=== PATIENT | male | born 1955 | race Caucasian/White ===

== ENCOUNTER 2021-06-25 17:24 | Inpatient (IN) | payer MEDICARE, OTHER ==
[~2021-06-25] VITALS: Ht 182.9 cm; Wt 78.6 kg
[~2021-06-25 17:24] MED LIST: DCS100C PO; HYDR-3454 PO
--- NOTE | 2021-06-25 17:39 | ED Chest Pain ---
General Chief Complaint: Cardiac/General Problems Stated Complaint: STEMI Nursing Triage Note: ARRIVED VIA EMS FROM [facility]. STEMI ALERT. 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 PT HAS HAD X2 NITRO AND 3324MG ASA. PT STATES HE HAS HAD THE PAIN ALL DAY. LEAFLET DISTRIBUTOR STATES CATH TEAM WAS ALERTED AT 1725 Source: patient Exam Limitations: no limitations History of Present Illness Date Seen by Provider: Jun 25, 2021 Time Seen by Provider: 17:27 Initial Comments Patient to the ER by EMS from home with chief complaint of never chest pain all day today worse on deep inspiration. He went to urgent care and they did an EKG which demonstrated anterior lead ST elevation and called EMS. EMS remarks that his EKG showed anterior lead ST elevation Khalid in as a STEMI and gave him 324 mg of aspirin. 2 doses of nitroglycerin later and the patient is comfortable although still having the pain made worse on deep inspiration only. He denies a history of heart disease but he does smoke cigarettes. He says he stopped using stimulants many years ago. He does not drink alcohol. He does have a history of low blood pressure does not take any blood pressure medications, cholesterol medications or significant family history. Allergies and Home Medications Allergies Coded Allergies: No Known Drug Allergies (Unverified , 09/06/13) Patient Home Medication List Home Medication List Reviewed: Yes Docusate Sodium (Colace) 100 Mg Capsule, 1 CAP PO BID Prescribed by: JAY SCHULZ on 09/12/13 0956 Hydrocodone Bit/Acetaminophen (Vicodin 5-300 Mg Tablet) 1 Each Tablet, 1 TAB PO Q4H PRN for PAIN Prescribed by: JAY SCHULZ on 09/12/13 0956 Review of Systems Review of Systems Constitutional: No chills, No diaphoresis EENTM: No Blurred Vision, No Double Vision Respiratory: Denies Cough, Denies Orthopnea Cardiovascular: See HPI, Chest Pain; Denies Edema Gastrointestinal: Denies Abdomen Distended, Denies Abdominal Pain Genitourinary: Denies Burning, Denies Discharge Musculoskeletal: No back pain, No joint pain All Other Systems Reviewed Negative Unless Noted: Yes Past Pjycyfz-Bpadaz-Xevbhh Hx Patient Social History Tobacco Use?: Yes Substance use?: No Additional substance use comme: PAST HX Alcohol Use?: No Immunizations Up To Date COVID19 Vaccine 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 oz. 69.100595tn; 21.00 BMI Method: General Appearance: Anxious, Thin HEENT: PERRL/EOMI, Moist Mucous Membranes Neck: Full Range of Motion, Normal Inspection Respiratory: Lungs Clear, Normal Breath Sounds, No Accessory Muscle Use, No Respiratory Distress Cardiovascular: Regular Rate, Rhythm, No Edema, Normal Peripheral Pulses Gastrointestinal: Normal Bowel Sounds, Non Tender, Soft Extremity: Normal Capillary Refill, Normal Inspection, No Pedal Edema Neurologic/Psychiatric: Alert, Oriented x3, No Motor/Sensory Deficits Skin: Normal Color, Warm/Dry Progress/Results/Core Measures Results/Orders Lab Results Laboratory Tests Test 06/25/21 17:32 Range/Units White Blood Count 12.5 H 4.3-11.0 10^3/uL Red Blood Count 5.08 4.30-5.52 10^6/uL Hemoglobin 15.3 13.3-17.7 g/dL Hematocrit 46 40-54 % Mean Corpuscular Volume 91 80-99 fL Mean Corpuscular Hemoglobin 30 25-34 pg Mean Corpuscular Hemoglobin Concent 33 32-36 g/dL Red Cell Distribution Width 13.0 10.0-14.5 % Platelet Count 188 130-400 10^3/uL Mean Platelet Volume 11.0 9.0-12.2 fL Immature Granulocyte % (Auto) 0 % Neutrophils (%) (Auto) 63 42-75 % Lymphocytes (%) (Auto) 22 12-44 % Monocytes (%) (Auto) 9 0-12 % Eosinophils (%) (Auto) 5 0-10 % Basophils (%) (Auto) 1 0-10 % Neutrophils # (Auto) 8.0 H 1.8-7.8 10^3/uL Lymphocytes # (Auto) 2.7 1.0-4.0 10^3/uL Monocytes # (Auto) 1.1 H 0.0-1.0 10^3/uL Eosinophils # (Auto) 0.6 H 0.0-0.3 10^3/uL Basophils # (Auto) 0.1 0.0-0.1 10^3/uL Immature Granulocyte # (Auto) 0.1 0.0-0.1 10^3/uL Prothrombin Time 13.3 12.2-14.7 SEC INR Comment 1.0 0.8-1.4 Activated Partial Thromboplast Time 31 24-35 SEC D-Dimer 1.01 H 0.00-0.49 UG/ML Sodium Level 134 L 135-145 MMOL/L Potassium Level 4.2 3.6-5.0 MMOL/L Chloride Level 103 98-107 MMOL/L Carbon Dioxide Level 20 L 21-32 MMOL/L Anion Gap 11 5-14 MMOL/L Blood Urea Nitrogen 20 H 7-18 MG/DL Creatinine 1.36 H 0.60-1.30 MG/DL Estimat Glomerular Filtration Rate 57 BUN/Creatinine Ratio 15 Glucose Level 109 H 70-105 MG/DL Calcium Level 8.8 8.5-10.1 MG/DL Corrected Calcium 9.1 8.5-10.1 MG/DL Magnesium Level 1.9 1.6-2.4 MG/DL Total Bilirubin 0.5 0.1-1.0 MG/DL Aspartate Amino Transf (AST/SGOT) 27 5-34 U/L Alanine Aminotransferase (ALT/SGPT) 26 0-55 U/L Alkaline Phosphatase 100 40-136 U/L Myoglobin 43.7 10.0-92.0 NG/ML Troponin I < 0.028 <0.028 NG/ML B-Type Natriuretic Peptide 27.4 <100.0 PG/ML Total Protein 7.3 6.4-8.2 GM/DL Albumin 3.6 3.2-4.5 GM/DL Lipase 14 8-78 U/L My Orders Orders - KYRASYMONE J Cbc With Automated Diff (06/25/21 17:31) Magnesium (06/25/21 17:31) Chest 1 View, Ap/Pa Only (06/25/21 17:31) Ekg Tracing (06/25/21 17:31) Comprehensive Metabolic Panel (06/25/21 17:31) Myoglobin Serum (06/25/21 17:31) Protime With Inr (06/25/21 17:31) Partial Thromboplastin Time (06/25/21 17:31) O2 (06/25/21 17:31) Monitor-Rhythm Ecg Trace Only (06/25/21 17:31) Lipid Panel (06/26/21 06:00) Ed Iv/Invasive Line Start (06/25/21 17:31) Lipase (06/25/21 17:31) Bnp [place] (06/25/21 17:31) Fibrin Degradation Products (06/25/21 17:31) Troponin I [place] (06/25/21 17:31) Nitroglycerin 0.4 Mg Btl 25's (Nitrostat (06/25/21 17:45) Heparin Injection (Heparin Injection) (06/25/21 17:45) Heparin (Bolus Per Protocol) (Heparin (B (06/25/21 17:45) Initiate Heparin Acs Protocol (06/25/21 17:39) Heparin (Bolus Per Protocol) (Heparin (B (06/25/21 17:41) Medications Given in ED Current Medications Medications Dose Ordered Sig/Jeniffer Route Start Time Stop Time Status Last Admin Dose Admin Heparin Sodium (Porcine) 3,550 unit ONCE ONCE IV 06/25/21 17:45 06/25/21 17:46 DC 06/25/21 17:44 3,550 UNIT Nitroglycerin 0.4 mg UD PRN SL 06/25/21 17:45 06/25/21 17:45 0.4 MG Vital Signs/I&O 06/25/21 06/25/21 17:26 17:35 Temp 36.3 B/P (MAP) Pulse Ox 95 O2 Delivery Nasal Cannula O2 Flow Rate 2.00 Progress Progress Note : Time: 17:36 Progress Note 1730: Spoke with Dr. Snow and he agrees to activate the Safety And Health Manager. 1735 Dr. Snow arrives in the ER to visit with the patient. Heparin 3550 units ordered as a bolus. Patient is already received aspirin and is not having significant pain at the moment. Paddles were put on a second IV was established. He is not needing supplemental oxygen at this time. O2 saturation 96% on room air. Initial ECG Impression Date: Jun 25, 2021 Initial ECG Impression Time: 17:29 Initial ECG Rate: 90 Initial ECG Rhythm: Normal Sinus Initial ECG Intervals: Normal Initial ECG Impression: Normal Comment Anterior lead ST elevation Diagnostic Imaging Diagonstic Imaging: Xray Plain Films/CT/US/NM/MRI: chest Comments [facility], [place] NAME: GLORY HUYNH [facility] REC#: [id number] PT STATUS: [facility] [place], [place] : 1955 PHYSICIAN: SYMONE RAE MD ADMIT DATE: 06/25/21/CATH Signed Date of Exam:06/25/21 CHEST 1 VIEW, AP/PA ONLY INDICATION: Chest pain. FINDINGS: The heart size is normal. There is no vascular congestion, failure pattern, effusion or pneumothorax. IMPRESSION: No acute appearing abnormality. Dictated by: Dictated on workstation # [id number] Dict: 06/25/21 1808 Trans: 06/25/21 1834 [facility] [id number] Interpreted by: ANGEL CHENG Electronically signed by: ANGEL CHENG 06/25/214 Reviewed: Reviewed by Me Departure Communication (Admissions) Time/Spoke to Admitting Phy: 17:30 Dr. Snow agrees to see the patient and take to Safety And Health Manager. Impression Primary Impression: STEMI (ST elevation myocardial infarction) Qualified Codes: I21.02 - ST elevation (STEMI) myocardial infarction involving left anterior descending coronary artery Disposition: ADMITTED INPATIENT Condition: Stable Admissions Decision to Admit Reason: Admit from ER (General) Decision to Admit/Date: Jun 25, 2021 Time/Decision to Admit Time: 17:30 Departure-Patient Inst. Referrals: NO,LOCAL PHYSICIAN (PCP/Family) Primary Care Physician SYMONE RAE Jun 25, 2021 17:38
[2021-06-25] MEDS ORDERED: HEParin 1000 UNIT/ML (10ML VIAL) FOR BOLUS ONE ×2 (17:41→18:12)
[2021-06-25 17:43] LABS: BASOPHILS # (AUTO) 0.1 10^3/uL (0.0-0.1); BASOPHILS % (AUTO) 1 % (0-10); EOSINOPHILS # (AUTO) 0.6 10^3/uL (0.0-0.3); EOSINOPHILS % (AUTO) 5 % (0-10); HEMATOCRIT 46 % (40-54); HEMOGLOBIN 15.3 g/dL (13.3-17.7); LYMPHOCYTES # (AUTO) 2.7 10^3/uL (1.0-4.0); LYMPHOCYTES % (AUTO) 22 % (12-44); MEAN CORPUSCULAR HEMOGLOBIN 30 pg (25-34); MEAN CORPUSCULAR HGB CONC 33 g/dL (32-36); MEAN CORPUSCULAR VOLUME 91 fL (80-99); MONOCYTES # (AUTO) 1.1 10^3/uL (0.0-1.0); MONOCYTES % (AUTO) 9 % (0-12); NEUTROPHILS % (AUTO) 63 % (42-75); PLATELET COUNT 188 10^3/uL (130-400); WHITE BLOOD COUNT 12.5 10^3/uL (4.3-11.0)
[2021-06-25] MEDS ORDERED: HEParin 1000 UNIT/ML (10ML VIAL) FOR BOLUS IV ONE (17:45)
[2021-06-25] MEDS ORDERED: NITROGLYCERIN 0.4 MG SL TABS BTL 25'S SL PRN (17:45)
[2021-06-25 17:49] LABS: ALBUMIN 3.6 GM/DL (3.2-4.5)
[2021-06-25 17:50] LABS: POTASSIUM 4.2 MMOL/L (3.6-5.0)
[2021-06-25] MEDS ORDERED: fentaNYL INJ 100 MCG/2 ML AMP ONE (17:50)
[2021-06-25 17:51] LABS: CALCIUM 8.8 MG/DL (8.5-10.1)
[2021-06-25] MEDS ORDERED: NS IV 1000 ML 1,000 ML ONE ×2 (17:51→21:36)
[2021-06-25] MEDS ORDERED: MIDAZOLAM 5 MG/5 ML (VERSED) VIAL ONE (17:51)
[2021-06-25] MEDS ORDERED: LIDOCAINE 2% 20 ML (XYLOCAINE) VIAL ONE (17:51)
--- NOTE | 2021-06-25 17:51 | Cardiology History & Physical ---
HPI-Cardiology Cardiology Consultation Date of Consultation 06/25/21 Date of Admission Time Seen by Provider: 17:48 Indication: Chest pain HPI 66 years old gentleman with history of back surgeries over 20 years ago. No other history, active smoker, started to have chest pain this morning associated with shortness of breath, tightness in the retrosternal area. Went to the urgent care and he was noted to have ST elevation in V2 and V3. Patient was referred to the emergency room, responded to nitroglycerin, feeling better but still having some chest pain with deep inspiration. No similar episode in the past. No palpitation. No syncope. PMH-Cardiology Other PMHx Multiple back surgeries last surgery was over 20 years ago Social History Patient Social History Marrital Status: Employed/Student: employed Smoking: Current every day smoker Have you traveled recently?: No Alcohol Use?: No Family Hx Other Brother has history of heart attack and coronary artery disease ROS-Cardiology Review of Systems General: No Chills, No Night Sweats, No Fatigue, No Malaise, No Appetite HEENT: No Head Aches, No Visual Changes, No Eye Pain, No Ear Pain, No Dysphasia, No Sinus Congestion, No Post Nasal Drip, No Sore Throat Pulmonary: Dyspnea; No Cough, No Pleuritic Chest Pain Cardiovascular: Chest Pain; No: Palpitations, Orthopnea, Paroxysmal Noc. Dyspnea, Edema, Lt Headedness Gastrointestinal: No: Nausea, Vomiting, Abdominal Pain, Diarrhea, Constipation, Melena, Hematochezia Genitourinary: No Dysuria, No Frequency, No Incontinence, No Hematuria, No Retention Musculoskeletal: No: neck pain, shoulder pain, arm pain, back pain, hand pain, leg pain, foot pain Neurological: No: Weakness, Numbness, Incoordination, Change in speech, Confusion, Seizures Home Medications & Allergies Allergies: Coded Allergies: No Known Drug Allergies (Unverified , 09/06/13) Home Medication List Reviewed: Yes Does not take any medication at home Exam-Cardiology Vital Signs Vital Signs Date Time Temp Pulse Resp B/P (MAP) Pulse Ox O2 Delivery O2 Flow Rate FiO2 06/25/21 17:35 95 Nasal Cannula 2.00 06/25/21 17:26 36.3 Exam General Appearance: Alert, Oriented X3, Cooperative, No Acute Distress HEENT: Atraumatic, PERRLA Respiratory: Clear to Auscultation, Normal Air Movement Cardiovascular: Regular Rate, Normal S1, Normal S2, No Murmurs Abdominal: Normal Bowel Sounds, Soft, No Tenderness, No Hepatosplenomegaly, No Masses Extremities: No Clubbing, No Cyanosis, No Edema, Normal Pulses, No Tenderness/Swelling Skin: No Rashes, No Breakdown, No Significant Lesion Neuro: Normal Gait, Normal Speech, Strength at 5/5 X4 Ext, Normal Tone, Sensation Intact Psych/Mental Status: Mental Status NL, Mood NL Results Labs Labs Laboratory Tests 06/25/21 17:32: White Blood Count 12.5H, Red Blood Count 5.08, Hemoglobin 15.3, Hematocrit 46, Mean Corpuscular Volume 91, Mean Corpuscular Hemoglobin 30, Mean Corpuscular Hemoglobin Concent 33, Red Cell Distribution Width 13.0, Platelet Count 188, Mean Platelet Volume 11.0, Immature Granulocyte % (Auto) 0, Neutrophils (%) (Auto) 63, Lymphocytes (%) (Auto) 22, Monocytes (%) (Auto) 9, Eosinophils (%) (Auto) 5, Basophils (%) (Auto) 1, Neutrophils # (Auto) 8.0H, Lymphocytes # (Auto) 2.7, Monocytes # (Auto) 1.1H, Eosinophils # (Auto) 0.6H, Basophils # (Auto) 0.1, Immature Granulocyte # (Auto) 0.1 A/P-Cardiology Admission Diagnosis Acute ST elevation myocardial infarction Coronary artery disease Tobaccoism Family history of atherosclerosis Admission Status: Inpatient Order (span 2 midnights) Reason for Inpatient Admission: STEMI Assessment/Plan Acute ST elevation myocardial infarction in the anterior wall, EKG showed slight improvement compared to the initial EKG from the urgent care. Having ST elevation in V2 and V3. Still having mild active chest pain, planning to proceed with emergency cardiac catheterization Coronary artery disease, I am proceeding with cardiac catheterization Tobaccoism, educated on smoking cessation Probable hyperlipidemia, I will evaluate lipid profile Strong family history of heart disease History of multiple back surgeries last surgery was done in 1999 Clinical Quality Measures AMI/AHF: ASA po Prior to arrival: Yes LEILA CR MD Jun 25, 2021 17:51
[2021-06-25 17:52] LABS: PROTHROMBIN TIME PATIENT 13.3 SEC (12.2-14.7); TOTAL PROTEIN 7.3 GM/DL (6.4-8.2)
[2021-06-25] MEDS ORDERED: HEParin (CATH LAB) 2,000 ML IV ONE (17:52)
[2021-06-25 17:54] LABS: BILIRUBIN,TOTAL 0.5 MG/DL (0.1-1.0)
[2021-06-25 17:56] LABS: CREATININE SERUM 1.36 MG/DL (0.60-1.30)
[2021-06-25 17:58] LABS: MAGNESIUM 1.9 MG/DL (1.6-2.4)
[2021-06-25 18:02] VITALS: BP 131/78
--- NOTE | 2021-06-25 18:10 | Diagnostic Imaging Report ---
INDICATION: Chest pain. FINDINGS: The heart size is normal. There is no vascular congestion, failure pattern, effusion or pneumothorax. IMPRESSION: No acute appearing abnormality. Dictated by: Dictated on workstation # [id number]
[2021-06-25] MEDS ORDERED: TICAGRELOR 90 MG TABLET (BRILINTA) PO ONE (18:42)
[2021-06-25] MEDS ORDERED: PATIENT MAY USE OWN MEDS, ALL PO SCH (18:45)
--- NOTE | 2021-06-25 18:55 | Cardiac Cath Report ---
Cardiac Cath Report Physician (s)/Global Climate Change Researcher (s) Physician LEILA CR MD Pre-Procedure Diagnosis Pre-Procedure Diagnosis: Acute myocardial infarction Post-Procedure Note Procedure Start Date: Jun 25, 2021 Name of Procedure: Left heart catheterization Left ventriculogram Emergency stenting of the ostial LAD Stenting of the mid right coronary artery Findings/Procedure Note PROCEDURE NOTE: 66 years old gentleman with history of tobaccoism and family history of heart disease, admitted with acute ST elevation myocardial infarction in the anterior wall. Emergency cardiac catheterization was advised. After explaining the procedure to the patient, all pros and cons were explained, all questions were answered. The patient signed the consent and then he was placed on the cardiac catheterization laboratory. Groin was prepped SL fashion local anesthesia was used. Sheath placed in the right femoral artery. Bill right and left catheter were used to access the coronary system. Pigtail was used to access the left ventricular cavity. Left ventriculogram was done at the end of the procedure Bill left 3.5 guide was advanced to the left coronary system, patient had ostial severe LAD stenosis with DONELL II flow, wire was advanced and placed in the mid LAD then primary stenting using skypoint 3 x 18 expanded to 3.1 mm with excellent results. The door to establishment of flow was 45 minutes, door to placement of the wire was 49 minutes and door to stenting was 50 minutes. Bill right guide was advanced and BMW wire was advanced and parked distally, patient has severe stenosis in the mid right coronary artery, primary stenting using skypoint 3.5 x 15 mm deployed to 3.6 mm with excellent results. The circumflex lesion was staged for a later point due to the underlying renal insufficiency and the large amount of contrast used At the end of the procedure the sheath was removed. Closure device was used FINDINGS: Hemodynamics LV 149/9, end-diastolic pressure of 9 Aorta 161/77 mean of 107 ANATOMY: Left Main has no obstructive disease Left Anterior Descending has severe ostial stenosis with DONELL II flow successful deployment of argenis point stent 3 x 18 mm expanded to 3.1 mm with excellent results and reestablishment of DONELL-3 flow, the artery is tortuous in the mi dportion Left Circumflex is moderate in size, has moderate to severe stenosis at the midportion involving an obtuse marginal origin. This will be staged for intervention later Right Coronary Artery has 50% proximal stenosis and 90% stenosis at the midport ion successful primary stenting using argenis point 3.5 x 15 mm expanded to 3.6 mm with excellent results LV Gram was done showing normal left ventricular size with subtle hypokinesia in the anterior wall and inferior wall, ejection fraction 50% CONCLUSION: 1. Acute myocardial infarction with successful emergency stenting of the ostium of the LAD using skypoint stent 3 x 18 mm expanded to 3.1 with excellent results. 2. Severe stenosis in the mid right coronary artery that is a large dominant artery with successful deployment of skypoint stent 3.5 x 15 mm expanded to 3.6 mm with excellent results, the proximal right coronary artery has 50% stenosis which will be monitored 3. 70% stenosis in the mid circumflex artery involving the ostium of obtuse marginal branch that he will be staged for intervention at a later point 4. Normal left ventricular size with good contractility, subtle hypokinesia at the anterior wall and inferior wall with estimated ejection fraction 50% DISCUSSION AND RECOMMENDATION: Patient was started on aspirin and Brilinta, Lipitor and Protonix and will be monitored, he was educated on smoking cessation Anesthesia Type: Conscious Sedation Estimated blood loss (mL): 30 ml Contrast Amount: 119 ml Total Radiation Dose: 598 mGy Post-Procedure Diagnosis Post-operative diagnosis: Acute ST elevation myocardial infarction in the anterior wall Coronary artery disease Tobaccoism Family history of atherosclerosis LEILA CR MD Jun 25, 2021 18:55
--- NOTE | 2021-06-25 21:12 | Tele-ICU Consult ---
History of Present Illness History of Present Illness Date Seen by Provider: Jun 25, 2021 Time Seen by Provider: 21:05 Reason for Visit: Chest pain History of Present Illness 66 M with STEMI of ant wall, taken to CCL found to have severe occlusion of LAD and RCA, both stented, LCx 70%, not stented, to be addressed at later date On Brilanta, ASA, statin, metoprolol Allergies and Home Medications Allergies Coded Allergies: No Known Drug Allergies (Unverified , 09/06/13) Home Medications Docusate Sodium 100 Mg Capsule, 1 CAP PO BID Prescribed by: JAY SCHULZ on 09/12/13 0956 Hydrocodone Bit/Acetaminophen 1 Each Tablet, 1 TAB PO Q4H PRN for PAIN Prescribed by: JAY SCHULZ on 09/12/13 0956 Past Medical/Social/Family Hx Patient Social History Marrital Status: Employed/Student: employed Tobacco Use?: Yes Tobacco type used: Cigarettes Smoking Status: Current Everyday Smoker Smokeless Tobacco Frequency: Never a User E-Cig and/or Vaping Freq: Never a User Substance use?: No PAST HX Alcohol Use?: No PAST HX Pt stated abuse/neglect: No Immunizations Up To Date Influenza Vaccine Up-to-Date: No; Not Current First/Initial COVID19 Vaccinat: Mar 2020 Second COVID19 Vaccination Luis: Apr 2020 Current Status Advance Directives: No Communicates: Verbally Primary Language: Belizean Preferred Spoken Language: Belizean Implanted or Applied Medical D: Stents Review of Systems Constitutional: see HPI EENTM: see HPI Respiratory: see HPI Cardiovascular: see HPI Gastrointestinal: see HPI Genitourinary: see HPI Musculoskeletal: see HPI Skin: see HPI Psychiatric/Neurological: See HPI Focused Exam Height, Weight, BMI Height: 6'0.00" Weight: 153lbs. oz. 69.026040li; 23.55 BMI Method: Exam Exam Patient acknowledged, consented, and participated in this virtual visit which was conducted using real time audio/video Vital Signs Date Time Temp Pulse Resp B/P (MAP) Pulse Ox O2 Delivery O2 Flow Rate FiO2 06/25/21 19:18 74 06/25/21 18:02 77 16 131/78 98 Nasal Cannula 2.00 06/25/21 17:35 95 Nasal Cannula 2.00 06/25/21 17:26 36.3 Height & Weight Height: 6'0.00" Weight: 153lbs. oz. 69.816823uk; 23.55 BMI Method: General Appearance: Anxious, Thin HEENT: PERRL/EOMI, Moist Mucous Membranes Neck: Full Range of Motion, Normal Inspection Respiratory: Lungs Clear, Normal Breath Sounds, No Accessory Muscle Use, No Respiratory Distress Cardiovascular: Regular Rate, Rhythm, No Edema, Normal Peripheral Pulses Extremity: Normal Capillary Refill, Normal Inspection, No Pedal Edema Neurologic/Psychiatric: Alert, Oriented x3, No Motor/Sensory Deficits Skin: Normal Color, Warm/Dry Results Lab Laboratory Tests 06/25/21 17:32 Assessment/Plan Assessment/Plan CAD, STEMI, s/p stenting, will continue meds, cardiology to follow Critical Care: Critically Ill Patient RAMBO BOLIVAR MD Jun 25, 2021 21:12
[2021-06-25] MEDS: NS IV 1000 ML 1,000 ML IV SCH (21:46)
[2021-06-25] MEDS: TICAGRELOR 90 MG TABLET (BRILINTA) PO SCH (23:29)
[2021-06-26 04:52] LABS: BASOPHILS % (AUTO) 0 % (0-10); EOSINOPHILS # (AUTO) 0.3 10^3/uL (0.0-0.3); EOSINOPHILS % (AUTO) 3 % (0-10); HEMATOCRIT 44 % (40-54); LYMPHOCYTES % (AUTO) 18 % (12-44); MEAN CORPUSCULAR HEMOGLOBIN 30 pg (25-34); MEAN CORPUSCULAR HGB CONC 34 g/dL (32-36); MEAN CORPUSCULAR VOLUME 89 fL (80-99); MEAN PLATELET VOLUME 11.1 fL (9.0-12.2); MONOCYTES % (AUTO) 9 % (0-12); NEUTROPHILS # (AUTO) 7.5 10^3/uL (1.8-7.8); NEUTROPHILS % (AUTO) 69 % (42-75); PLATELET COUNT 163 10^3/uL (130-400); WHITE BLOOD COUNT 10.9 10^3/uL (4.3-11.0)
[2021-06-26 05:06] LABS: POTASSIUM 4.1 MMOL/L (3.6-5.0)
[2021-06-26 05:07] LABS: ALBUMIN 3.2 GM/DL (3.2-4.5); CALCIUM 8.4 MG/DL (8.5-10.1)
[2021-06-26 05:09] LABS: TOTAL PROTEIN 6.6 GM/DL (6.4-8.2)
[2021-06-26] MEDS: NS IV 1000 ML 1,000 ML IV SCH (05:09)
[2021-06-26 05:11] LABS: BILIRUBIN,TOTAL 1.3 MG/DL (0.1-1.0)
[2021-06-26 05:12] LABS: PHOSPHORUS 2.7 MG/DL (2.3-4.7)
[2021-06-26 05:13] LABS: CREATININE SERUM 1.09 MG/DL (0.60-1.30)
[2021-06-26 05:16] LABS: MAGNESIUM 1.6 MG/DL (1.6-2.4)
[2021-06-26] MEDS ORDERED: MAGNESIUM 1 GM/100 ML IVPB 100 ML IV SCH (06:00)
[2021-06-26] MEDS ORDERED: POTASSIUM CL 10MEQ/50ML IVPB 50 ML IV SCH (06:00)
[2021-06-26] MEDS ORDERED: KCL 20 MEQ TAB (K-DUR) PO SCH (06:00)
[2021-06-26] MEDS: MAGNESIUM 1 GM/100 ML IVPB 100 ML IV SCH ×2 (06:01→07:18)
[2021-06-26] MEDS ORDERED: PANTOPRAZOLE 40 MG (PROTONIX) TAB PO SCH (07:00)
[2021-06-26] MEDS: TICAGRELOR 90 MG TABLET (BRILINTA) PO SCH (08:28)
[2021-06-26] MEDS ORDERED: ASPIRIN E.C. 81 MG (ECOTRIN) TAB PO SCH (09:00)
[2021-06-26] MEDS ORDERED: PANT40TA52 PO (09:04)
[2021-06-26] MEDS ORDERED: ATOR80TA76 PO (09:04)
[2021-06-26] MEDS ORDERED: ASPI-1238 PO (09:04)
[2021-06-26] MEDS ORDERED: TICA90TA PO (09:04)
--- NOTE | 2021-06-26 09:04 | Discharge Inst-Post CATH ---
Discharge Inst-CATH/EP Problems Reviewed?: Yes Post Cardiac Cath/EP D/C Inst Follow Up/Plan Appointment with Dr. Snow's office in 2 weeks <b>CARDIAC CATH/EP PROCEDURE DISCHARGE INSTRUCTIONS</b> ACTIVITY * Go Home directly and rest. * Limit activity of the leg (or wrist if it was used) for 7 days including aerobics, swimming, jogging, bicycling, etc. * Restrict stair-climbing for 7 days if possible, if not, climb up with your non-cath leg, then bring together on the same step. * Avoid lifting, pushing, pulling or excessive movement of the affected extremity for 7 days. * Customary sexual activity may be resumed after 2 days-use caution not to use a position that strains or causes pain to the affected extremity. * No driving for 24 hours. * NO SMOKING. * Avoid straining for bowel movements for 7 days. * Gentle walking on level ground is allowed. * Returning to work will depend on the type of procedure and the results. Your doctor will discuss this with you. CALL YOUR DOCTOR FOR ANY OF THE FOLLOWING: *If bleeding from the puncture site occurs- Apply gentle pressure to site with clean cloth and call your doctor or EMS. * If a knot or lump forms under the skin, increases in size, or causes pain. * If bruising appears to be worsening or moving further down your leg instead of disappearing. * Temperature above 101 F. CARE OF YOUR GROIN INCISION; * Bruising or purple discoloration of the skin near the puncture site is common. * You may shower only, no bathtub bathing for 5 days. Be careful to avoid slipping as your leg may feel stiff. * If a closure device was used on your femoral artery, please see the attached guide regarding care of the device and your leg. * Leave dressing on FOR 24 hours. CARE OF YOUR WRIST INCISION; * Bruising or purple discoloration of the skin near the puncture site is common. * You may shower. * DO NOT submerge wrist. * Leave dressing on FOR 24 hours. LEILA SNOW MD Jun 26, 2021 09:04
--- NOTE | 2021-06-26 09:43 | Tele-ICU Progress Note ---
Subjective Date Seen by a Provider: Jun 26, 2021 Time Seen by a Provider: 08:22 Subjective/Events-last exam (Tele-ICU Physician , Progress Note ) Available chart/ vitals / labs / Images reviewed Video assessment done using teleICU camera, rest of exam as per RN Discussed with RN , EXAM PER RN Events overnight : Afebrile FiO2 - ra I/O = Drips: Pressors: , hemodynamically stable Consultants: Hospital course: (06/25) 66yr old male admitted with a anterior wall STEMI s/p PTCA with stent to the ostium of the LAD and RCA A/P STEMI 06/25 -s/p PTCA with stent to the ostium of the LAD and RCA -LCx 70%, not stented, to be addressed at later date -On Brilanta, ASA, statin, metoprolol hyponatremia - mild , stable Lines : (Central Line Necessity Reviewed) Soriano: OG: Nutrition: po Analgesia: Anxiety/ delirium VTE Prophylaxis: Stress Ulcer Prophylaxis: ppi Plans in collaboration with bedside consultants and IM MDs. Discussed with RN to reach out if any questions or concerns A total of 5 minutes of critical care time was devoted to this patient today, required to treat and/or prevent further deterioration of critical care condition ( as above) Sepsis Event Evaluation Height, Weight, BMI Height: 6'0.00" Weight: 153lbs. oz. 69.258446pr; 23.55 BMI Method: Exam Exam Patient acknowledged, consented, and participated in this virtual visit which was conducted using real time audio/video Vital Signs Date Time Temp Pulse Resp B/P (MAP) Pulse Ox O2 Delivery O2 Flow Rate FiO2 06/26/21 09:00 70 20 102/72 98 Room Air 06/26/21 08:00 37.0 06/26/21 08:00 82 14 89/63 94 Room Air 06/26/21 07:45 Room Air 98 06/26/21 07:00 72 14 82/61 96 Room Air 06/26/21 07:00 75 06/26/21 06:00 67 17 87/71 97 Room Air 06/26/21 05:00 81 19 88/61 96 Room Air 06/26/21 04:00 37.2 06/26/21 04:00 86 18 103/87 97 Room Air 06/26/21 04:00 Room Air 06/26/21 03:00 74 19 92/73 97 Room Air 06/26/21 02:00 77 20 99/71 97 Room Air 06/26/21 01:00 76 20 109/87 98 Room Air 06/26/21 01:00 80 06/26/21 00:00 36.8 06/26/21 00:00 78 17 122/64 97 Room Air 06/26/21 00:00 Room Air 06/25/21 23:00 74 18 120/86 99 Room Air 06/25/21 22:57 Room Air 06/25/21 22:00 68 20 106/85 98 Nasal Cannula 2.00 06/25/21 21:00 67 17 103/84 100 Nasal Cannula 2.00 06/25/21 20:30 75 19 101/76 99 Nasal Cannula 2.00 06/25/21 20:00 Nasal Cannula 2.00 06/25/21 20:00 69 20 110/83 100 Nasal Cannula 2.00 06/25/21 19:45 73 16 110/76 100 Nasal Cannula 2.00 06/25/21 19:30 Nasal Cannula 2.00 06/25/21 19:18 74 06/25/21 19:15 36.3 06/25/21 19:15 71 20 118/87 97 Nasal Cannula 2.00 06/25/21 19:12 112/84 06/25/21 18:02 77 16 131/78 98 Nasal Cannula 2.00 06/25/21 17:35 95 Nasal Cannula 2.00 06/25/21 17:26 36.3 I & O 06/26/21 07:00 Intake Total 50 ml Output Total 1100 ml Balance -1050 ml Height & Weight Height: 6'0.00" Weight: 153lbs. oz. 69.282104yy; 23.55 BMI Method: General Appearance: Anxious, Thin HEENT: PERRL/EOMI, Moist Mucous Membranes Neck: Full Range of Motion, Normal Inspection Respiratory: Lungs Clear, Normal Breath Sounds, No Accessory Muscle Use, No Respiratory Distress Cardiovascular: Regular Rate, Rhythm, No Edema, Normal Peripheral Pulses Capillary Refill: Less Than 3 Seconds Extremity: Normal Capillary Refill, Normal Inspection, No Pedal Edema Neurologic/Psychiatric: Alert, Oriented x3, No Motor/Sensory Deficits Skin: Normal Color, Warm/Dry Results Lab Laboratory Tests 06/25/21 17:32 4/9/22 04:30 Assessment/Plan Assessment/Plan ` TAE YU MD Jun 26, 2021 09:43
--- NOTE | 2021-06-26 09:45 | Cardiology Discharge Summary ---
Discharge Summary Hospital Course Problems Reviewed?: Yes Hospital Course Date of Admission: Jun 25, 2021 at 18:47 Admission Diagnosis : Family Physician/Provider: No,Local Physician Date of Discharge: 06/26/21 Discharge Diagnosis: [Acute ST elevation myocardial infarction Coronary artery disease Hyperlipidemia Tobaccoism] Hospital Course: [Acute ST elevation myocardial infarction in the anterior wall, EKG showing dynamic ST elevation, initial urgent care EKG showing significant ST elevation NC in V2 and V3, repeat EKG in the emergency room showed improvement but still have some residual ST elevation in V3. EKG on June 26, 2021 showed resolution of the ST changes with persistent right bundle branch block. Troponin showed mild elevation. Coronary artery disease, emergency cardiac catheterization was done and results as follow: 1. Acute myocardial infarction with successful emergency stenting of the ostium of the LAD using skypoint stent 3 x 18 mm expanded to 3.1 with excellent results. 2. Severe stenosis in the mid right coronary artery that is a large dominant artery with successful deployment of skypoint stent 3.5 x 15 mm expanded to 3.6 mm with excellent results, the proximal right coronary artery has 50% stenosis which will be monitored 3. 70% stenosis in the mid circumflex artery involving the ostium of obtuse marginal branch that he will be staged for intervention at a later point 4. Normal left ventricular size with good contractility, subtle hypokinesia at the anterior wall and inferior wall with estimated ejection fraction 50% Hypotension, patient will not be able to tolerate beta-blockers, NAZ inhibitor and/or ARB. Hyperlipidemia, lipid profile showed total cholesterol 180, LDL 154, HDL 31, triglyceride 83, patient was started on Lipitor 80 mg daily. Continue to monitor Tobaccoism, educated on smoking cessation Strong family history of heart disease History of multiple back surgeries last surgery was done in 1999] Labs and Pending Lab Test: Laboratory Tests 06/25/21 17:32: White Blood Count 12.5H, Red Blood Count 5.08, Hemoglobin 15.3, Hematocrit 46, Mean Corpuscular Volume 91, Mean Corpuscular Hemoglobin 30, Mean Corpuscular Hemoglobin Concent 33, Red Cell Distribution Width 13.0, Platelet Count 188, Mean Platelet Volume 11.0, Immature Granulocyte % (Auto) 0, Neutrophils (%) (Auto) 63, Lymphocytes (%) (Auto) 22, Monocytes (%) (Auto) 9, Eosinophils (%) (Auto) 5, Basophils (%) (Auto) 1, Neutrophils # (Auto) 8.0H, Lymphocytes # (Auto) 2.7, Monocytes # (Auto) 1.1H, Eosinophils # (Auto) 0.6H, Basophils # (Auto) 0.1, Immature Granulocyte # (Auto) 0.1, Prothrombin Time 13.3, INR Comment 1.0, Activated Partial Thromboplast Time 31, D-Dimer 1.01H, Sodium Level 134L, Potassium Level 4.2, Chloride Level 103, Carbon Dioxide Level 20L, Anion Gap 11, Blood Urea Nitrogen 20H, Creatinine 1.36H, Estimat Glomerular Filtration Rate 57, BUN/Creatinine Ratio 15, Glucose Level 109H, Calcium Level 8.8, Corrected Calcium 9.1, Magnesium Level 1.9, Total Bilirubin 0.5, Aspartate Amino Transf (AST/SGOT) 27, Alanine Aminotransferase (ALT/SGPT) 26, Alkaline Phosphatase 100, Myoglobin 43.7, Troponin I < 0.028, B-Type Natriuretic Peptide 27.4, Total Protein 7.3, Albumin 3.6, Lipase 14 06/26/21 04:30: White Blood Count 10.9, Red Blood Count 4.93, Hemoglobin 15.0, Hematocrit 44, Mean Corpuscular Volume 89, Mean Corpuscular Hemoglobin 30, Mean Corpuscular Hemoglobin Concent 34, Red Cell Distribution Width 12.8, Platelet Count 163, Mean Platelet Volume 11.1, Immature Granulocyte % (Auto) 0, Neutrophils (%) (Aut o) 69, Lymphocytes (%) (Auto) 18, Monocytes (%) (Auto) 9, Eosinophils (%) (Auto) 3, Basophils (%) (Auto) 0, Neutrophils # (Auto) 7.5, Lymphocytes # (Auto) 2.0, Monocytes # (Auto) 1.0, Eosinophils # (Auto) 0.3, Basophils # (Auto) 0.0, Immature Granulocyte # (Auto) 0.0, Sodium Level 134L, Potassium Level 4.1, Chloride Level 106, Carbon Dioxide Level 16L, Anion Gap 12, Blood Urea Nitrogen 16, Creatinine 1.09, Estimat Glomerular Filtration Rate 74, BUN/Creatinine Ratio 15, Glucose Level 96, Calcium Level 8.4L, Corrected Calcium 9.0, Magnesium Level 1.6, Total Bilirubin 1.3H, Aspartate Amino Transf (AST/SGOT) 24, Alanine Aminotransferase (ALT/SGPT) 20, Alkaline Phosphatase 91, Troponin I 0.041H, Total Protein 6.6, Albumin 3.2, Phosphorus Level 2.7, Triglycerides Level 83, Cholesterol Level 180, LDL Cholesterol Direct 154H, VLDL Cholesterol 17, HDL Cholesterol 31L Home Meds Active Pantoprazole Sodium 40 Mg Tablet.dr 40 Mg PO DAILY@0700 Aspirin EC (Aspirin) 81 Mg Tablet.dr 81 Mg PO DAILY Atorvastatin Calcium 80 Mg Tablet 80 Mg PO HS Brilinta (Ticagrelor) 90 Mg Tablet 90 Mg PO BID Vicodin 5-300 Mg Tablet (Hydrocodone Bit/Acetaminophen) 1 Each Tablet 1 Tab PO Q4H PRN Colace (Docusate Sodium) 100 Mg Capsule 1 Cap PO BID Assessment/Pt DC Instructions Acute myocardial infarction Coronary artery disease Discharge Diet: Cardiac Diet Discharge Physical Examination Allergies: Coded Allergies: No Known Drug Allergies (Unverified , 09/06/13) General Appearance: No Apparent Distress, WD/WN HEENT: PERRL/EOMI, TMs Normal, Normal ENT Inspection, Pharynx Normal Respiratory: Chest Non Tender, Lungs Clear, Normal Breath Sounds, No Accessory Muscle Use, No Respiratory Distress Cardiovascular: Regular Rate, Rhythm, No Edema, No Gallop, No JVD, No Murmur, Normal Peripheral Pulses Gastrointestinal: Normal Bowel Sounds, No Organomegaly, No Pulsatile Mass, Non Tender, Soft Extremity: Normal Capillary Refill, Normal Inspection, Normal Range of Motion, Non Tender, No Calf Tenderness Skin: Normal Color, Warm/Dry Neurologic/Psychiatric: Alert, Oriented x3, No Motor/Sensory Deficits Clinical Quality Measures Admission Status Admission Status: Inpatient Order (span 2 midnights) Reason for Inpatient Admission: Acute ST elevation myocardial infarction AMI/AHF: Ejection Fraction: Normal LVSF ASA po Prior to arrival: Yes LEILA CR MD Jun 26, 2021 09:43
== END 2021-06-26 12:43 | disposition home or self-care (01) | DRG 247 ==
LOC: EDUNIT# 17:24 → ER 17:25 → CATH 17:48 → ICU 18:47
PROVIDERS: ADMIT Internal Medicine Cardiovascular Disease; ATTEND Internal Medicine Cardiovascular Disease
PROC: 027135Z Dilation of Coronary Artery, Two Arteries with Two Drug-eluting Intraluminal Devices, Percutaneous Approach (ICD-10-PCS; principal; 2021-06-25)
PROC: 4A023N7 Measurement of Cardiac Sampling and Pressure, Left Heart, Percutaneous Approach (ICD-10-PCS; 2021-06-25)
PROC: B2111ZZ Fluoroscopy of Multiple Coronary Arteries using Low Osmolar Contrast (ICD-10-PCS; 2021-06-25)
PROC: B2151ZZ Fluoroscopy of Left Heart using Low Osmolar Contrast (ICD-10-PCS; 2021-06-25)
DX: I21.09 ST elevation (STEMI) myocardial infarction involving other coronary artery of anterior wall (principal); E87.1 Hypo-osmolality and hyponatremia; F17.210 Nicotine dependence, cigarettes, uncomplicated; I25.10 Atherosclerotic heart disease of native coronary artery without angina pectoris; Z82.49 Family history of ischemic heart disease and other diseases of the circulatory system; E78.5 Hyperlipidemia, unspecified
CPT/HCPCS: 36415; 71045; 80053; 80061; 83690; 83735; 83874; 83880; 84100; 84484; 85025; 85027; 85379; 85610; 85730; 87081; 93041; 93306; 93458

== ENCOUNTER → 2021-06-28 | Outpatient (CLI) | payer MEDICARE ==
[~2021-06-28] MED LIST changes: +ASPI-1238 PO; +ATOR80TA76 PO; +CATHETER FLUSH 10 ML SYR IV PRN; +IOHEXOL 350 MG/ML 100 ML (OMNIPAQUE 350) VIAL IV ONE; +NS 100 ML (IVPB) BAG IV ONE; +PANT40TA52 PO; +TICA90TA PO
--- NOTE | 2021-06-28 17:06 | Diagnostic Imaging Report ---
INDICATION: Recent arterial access for cardiac catheterization. Now with leg pain. COMPARISON: 12/30/2011 TECHNIQUE: Routine postcontrast CTA of the abdomen, pelvis, and bilateral lower extremities was performed. Contrast was injected intravenously and timed for optimal opacification of the arterial structures. Multiplanar and 3-D reformats were also performed and reviewed. Auto Exposure Controls were utilized during the CT exam to meet ALARA standards for radiation dose reduction. FINDINGS: Included portions of the lung bases are clear. CTA ABDOMEN: There is extensive advanced calcified and noncalcified aortic atherosclerotic disease. Based on NASCET criteria, there is no focal significant stenosis of the aorta. There is no evidence of dissection or aneurysm. There is high-grade stenosis of the origin and proximal portions of the celiac artery. This however may be related to compression by the median arcuate ligament. Down stream branches of the celiac artery appear to be patent. Superior mesenteric artery shows mild eccentric noncalcified plaque along the superior margins of its proximal portion. This results in approximate narrowing of 30%. Downstream portions of the superior mesenteric artery appear to be widely patent. There are single renal arteries, bilaterally. There is no evidence of focal significant renal artery stenosis. Inferior mesenteric artery is patent. Small bowel loops are nondistended. There is scattered colonic diverticulosis, but no CT evidence of acute diverticulitis. Normal appendix is identified. Benign-appearing renal cysts are identified bilaterally. There is also nonobstructive left renal calculus. Otherwise, the kidneys, adrenal glands, spleen, pancreas, and liver have a normal CT appearance. There is no loculated fluid collection, free fluid or free air within the abdomen. No abnormal mesenteric or retroperitoneal adenopathy is seen. Osseous structures show no acute abnormalities. CTA PELVIS: There is moderate atherosclerotic disease of the aortic bifurcation as well as the bilateral common iliac arteries, right greater than left. No focal significant stenosis is identified. The urinary bladder is unopacified. No calculi are seen within the urinary bladder. There is no loculated fluid collection, free fluid or free air within the pelvis. No abnormal adenopathy is seen. Osseous structures show no acute abnormalities. CTA BILATERAL LOWER EXTREMITIES: There is moderate calcified and noncalcified atherosclerotic disease of the bilateral common femoral arteries. The bilateral superficial femoral arteries are occluded. There is reconstitution of the bilateral popliteal arteries, likely via collaterals from branches of the profunda femoral artery. There is normal opacification of the bilateral posterior tibial arteries. Left anterior tibial artery is diminutive in its appearance distally. It is likely occluded proximal to the level of the ankle. Large lucency is seen within the right calcaneus and may be on the basis of intraosseous lipoma. No acute osseous abnormality is seen. No suspicious bony lesion is identified. Special attention is paid to the external marker placed over the posterior proximal left thigh. Underlying soft tissue structures are unremarkable. No suspicious mass or fluid collection is seen. IMPRESSION: 1. Extensive advanced calcified and noncalcified aortic and arterial atherosclerosis, as described above. 2. 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 Again, this may be related to compression by the median arcuate ligament. 3. Mild narrowing of the proximal superior mesenteric artery. 4. Occlusion of the bilateral superficial femoral arteries with distal reconstitution of the popliteal artery, likely via collaterals from the bilateral profunda femoral arteries and its branches. 5. Benign-appearing bilateral renal cysts. 6. Nonobstructive left renal calculus. Dictated by: Dictated on workstation # [id number]
== END ==
LOC: RAD 16:00
PROVIDERS: ATTEND Internal Medicine Cardiovascular Disease
DX: I70.0 Atherosclerosis of aorta (principal); I77.4 Celiac artery compression syndrome; K55.1 Chronic vascular disorders of intestine; K57.30 Diverticulosis of large intestine without perforation or abscess without bleeding; N28.1 Cyst of kidney, acquired; N20.0 Calculus of kidney; I70.203 Unspecified atherosclerosis of native arteries of extremities, bilateral legs
CPT/HCPCS: 75635

== ENCOUNTER 2021-07-07 07:50 | Inpatient (IN) | payer MEDICARE ==
[~2021-07-07] VITALS: Ht 182.8 cm; Wt 72.3 kg
[~2021-07-07 07:50] MED LIST changes: -CATHETER FLUSH 10 ML SYR IV PRN; -IOHEXOL 350 MG/ML 100 ML (OMNIPAQUE 350) VIAL IV ONE; -NS 100 ML (IVPB) BAG IV ONE
[2021-07-07] MEDS ORDERED: NS IV 1000 ML 1,000 ML ONE ×2 (08:18→10:53)
[2021-07-07] MEDS ORDERED: HEParin (CATH LAB) 1,000 ML IV ONE (08:18)
[2021-07-07] MEDS ORDERED: LIDOCAINE 1% INJ 20 ML VIAL ONE (08:18)
[2021-07-07 08:33] LABS: HEMATOCRIT 46 % (40-54); HEMOGLOBIN 15.2 g/dL (13.3-17.7); MEAN CORPUSCULAR HEMOGLOBIN 30 pg (25-34); MEAN CORPUSCULAR HGB CONC 33 g/dL (32-36); MEAN CORPUSCULAR VOLUME 92 fL (80-99); MEAN PLATELET VOLUME 10.8 fL (9.0-12.2); PLATELET COUNT 248 10^3/uL (130-400); WHITE BLOOD COUNT 11.1 10^3/uL (4.3-11.0)
[2021-07-07 08:34] LABS: BILIRUBIN,URINE NEGATIVE (NEGATIVE); CLARITY,URINE CLEAR; COLOR,URINE YELLOW; GLUCOSE, URINE (UA) NEGATIVE (NEGATIVE); KETONES,URINE NEGATIVE (NEGATIVE); LEUKOCYTE ESTERASE ,URINE NEGATIVE (NEGATIVE); NITRITE,URINE NEGATIVE (NEGATIVE); PROTEIN,URINE 1+ (NEGATIVE)
[2021-07-07 08:36] VITALS: BP 98/80
--- NOTE | 2021-07-07 08:38 | Diagnostic Imaging Report ---
EXAMINATION: Chest 1 view HISTORY: Preoperative exam COMPARISON: 06/25/2021 FINDINGS: The lungs are clear without edema or pneumonia. No pleural effusion or pneumothorax. Heart size is normal. An 8 mm nodule left upper zone is unchanged and likely a calcified granuloma due to its conspicuity and small size. IMPRESSION: 1. Clear lungs. Dictated by: Dictated on workstation # [id number]
[2021-07-07 08:44] LABS: BACTERIA,URINE NEGATIVE /HPF; HYALINE CASTS, URINE RARE /LPF
[2021-07-07 08:48] LABS: INR 0.9 (0.8-1.4); PROTHROMBIN TIME PATIENT 12.8 SEC (12.2-14.7)
[2021-07-07] MEDS ORDERED: CLOP75TA28 PO (08:58)
[2021-07-07 09:11] LABS: ALBUMIN 3.8 GM/DL (3.2-4.5); BILIRUBIN,TOTAL 0.5 MG/DL (0.1-1.0); CALCIUM 9.4 MG/DL (8.5-10.1); CREATININE SERUM 1.55 MG/DL (0.60-1.30); POTASSIUM 4.3 MMOL/L (3.6-5.0); TOTAL PROTEIN 7.8 GM/DL (6.4-8.2)
[2021-07-07] MEDS ORDERED: fentaNYL INJ 100 MCG/2 ML AMP ONE (10:08)
[2021-07-07] MEDS ORDERED: MIDAZOLAM 5 MG/5 ML (VERSED) VIAL ONE (10:08)
--- NOTE | 2021-07-07 10:16 | Conscious Sedation/ASA ---
Conscious Sedation Pre-Proced Time 10:16 ASA Score 3 For ASA 3 and 4: Consider anesthesia and medical clearance. Also, for patients with a history of failed moderate sedation consider anesthesia. Airway Lungs Heart ASA score ASA 1: a normal healthy patient ASA 2: a patient with a mild systemic disease (mid diabetes, controlled hypertension, obesity x ASA 3: a patient with a severe systemic disease that limits activity (angina, COPD, prior Myocardial infarction) ASA 4: a patient with an incapacitating disease that is a constant threat to life (CHF, renal failure) ASA 5: a moribund patient not expected to survive 24 hrs. (ruptured aneurysm) ASA 6: a declared brain- patient whose organs are being harvested. For emergent operations, add the letter E after the classification Mallampati Classification Grade 3 Sedation Plan Analgesia, Amnesia, Plan communicated to team members, Discussed options with patient/fam, Discussed risks with patient/fam The patient is an appropriate candidate to undergo the planned procedure, sedation, and anesthesia. The patient immediately re-assessed prior to indication. LEILA CR MD Jul 07, 2021 10:16
[2021-07-07] MEDS ORDERED: HEParin 1000 UNIT/ML (10ML VIAL) FOR BOLUS ONE (10:45)
[2021-07-07] MEDS: NS IV 1000 ML 1,000 ML IV SCH ×3 (11:30→16:42)
[2021-07-07] MEDS ORDERED: NITRO DRIP 25000 MCG/D5W 250 ML IV ONE (11:49)
[2021-07-07] MEDS ORDERED: ASPIRIN 325 MG (5 GR) TABLET ONE (12:07)
[2021-07-07] MEDS ORDERED: CLOPIDOGREL 300 MG (PLAVIX) TABLET PO ONE (12:07)
[2021-07-07 12:15] VITALS: BP 118/91
[2021-07-07] MEDS ORDERED: PATIENT MAY USE OWN MEDS, ALL PO SCH (12:15)
--- NOTE | 2021-07-07 12:16 | Peripheral Report ---
Peripheral Report Physician (s)/Automotive Porter (s) Physician LEILA CR MD Pre-Procedure Diagnosis Pre-Procedure Diagnosis: Peripheral arterial disease, claudication Post-Procedure Note Procedure Start Date: Jul 07, 2021 Name of Procedure: Bilateral lower extremity runoff Third order Stenting of the left SFA Findings/Procedure Note PROCEDURE NOTE: 66-year-old gentleman with coronary artery disease status postacute myocardial infarction seen in the office having severe pain in his lower extremities, had CTA which showed occlusion of the SFA bilaterally he was scheduled for peripheral angiogram. After explaining the procedure to the patient, all pros and cons were explained, all questions were answered. The patient signed the consent and then he was placed on the cardiac catheterization laboratory. The patient was placed on the cardiac catheterization laboratory. Groin was prepped SL fashion local anesthesia was used. Sheath placed in the right femoral artery, runoff to the right leg was done then I advanced a rim catheter and did runoff of the left leg. Patient had total occlusion of the SFA bilaterally. Patient received total of 6000 units of heparin, I used a long sheath then a mini catheter and was able to cross with difficulty through the chronic total occlusion of the SFA. I used the mini catheter to assist with the crossing and I was alternating between command [address], I advanced the mini catheter to the popliteal artery and did direct injection and establish that the catheter is in the true lumen. Then I placed a command 18 wire and started with ballooning using Baldwin 4 x 200 then advanced Baldwin 6 x 200. I proceeded with deployment of 3 Supera stents starting proximally with 6 x 150 followed by 5.5 x 150 and another 5.5 x 150. The ostium of the SFA has ulcerated plaque, I decided to place absolute Pro 7 x 40 overlapping with other stents postdilated with Baldwin 6 x 150 balloon, angiogram showed excellent results with good flow. At the end of the procedure sheath was exchanged to a short 6 Maltese sheath then rim catheter was advanced that I evaluated the abdominal aorta at the bifurcation level then closure device was deployed FINDINGS: Right lower extremity: Total occlusion of the ostium of the right SFA reconstructed at the popliteal artery Left lower extremity: Total occlusion of the ostium of the left SFA reconstructed by collaterals at the popliteal level, complex intervention with d eployment of 4 stents. At the ostium absolute Pro 7 x 40 followed by Supera 6 x 150 then Supera 5.5 x 150 and another Supera 5.5 x 150 with excellent results and excellent flow down to the foot. CONCLUSIONS: 1. Total occlusion of the left SFA, complex intervention with deployment of 4 self-expanding stent extending from the ostium of the left SFA to the popliteal artery using absolute Pro 7 x 40 followed by Supera 6 x 150 then Supera 5.5 x 150 and another Supera 5.5 x 150. Excellent results with excellent flow 2. Total occlusion of the right SFA that will be staged for an intervention DISCUSSION AND RECOMMENDATIONS: Continue to maximize medical therapy Anesthesia Type: Conscious Sedation Estimated blood loss (mL): 35 ml Contrast Amount: 60 ml Total Radiation Dose: 213 mGy Post-Procedure Diagnosis Post-operative diagnosis: Coronary artery disease Peripheral arterial disease Claudication Hypertension LEILA CR MD Jul 07, 2021 12:16
[2021-07-07 12:45] VITALS: BP 112/85
[2021-07-07 13:00] VITALS: BP 112/88
[2021-07-07 16:01] VITALS: BP 116/90
[2021-07-07 20:00] VITALS: BP 94/73
[2021-07-08] VITALS: BP 100/73
[2021-07-08 04:00] VITALS: BP 101/77
[2021-07-08 06:14] LABS: HEMATOCRIT 41 % (40-54); HEMOGLOBIN 14.1 g/dL (13.3-17.7); MEAN CORPUSCULAR HEMOGLOBIN 31 pg (25-34); MEAN CORPUSCULAR HGB CONC 34 g/dL (32-36); MEAN CORPUSCULAR VOLUME 89 fL (80-99); PLATELET COUNT 216 10^3/uL (130-400); WHITE BLOOD COUNT 10.8 10^3/uL (4.3-11.0)
[2021-07-08 06:27] LABS: POTASSIUM 4.4 MMOL/L (3.6-5.0)
[2021-07-08 06:28] LABS: CALCIUM 8.7 MG/DL (8.5-10.1)
[2021-07-08 06:33] LABS: CREATININE SERUM 1.32 MG/DL (0.60-1.30)
[2021-07-08 08:15] VITALS: BP 76/58
[2021-07-08] MEDS: NS IV 1000 ML 1,000 ML IV SCH ×4 (08:47→22:51)
[2021-07-08] MEDS: PANTOPRAZOLE 40 MG (PROTONIX) TAB PO SCH (09:09)
[2021-07-08] MEDS: ASPIRIN E.C. 81 MG (ECOTRIN) TAB PO SCH (09:09)
[2021-07-08] MEDS: CLOPIDOGREL 75 MG (PLAVIX) TABLET PO SCH (09:09)
--- NOTE | 2021-07-08 09:54 | Cardiology History & Physical ---
HPI-Cardiology Cardiology Consultation Date of Consultation 07/08/21 Date of Admission Time Seen by Provider: 09:51 Indication: leg pain HPI 66-year-old gentleman with coronary artery disease, had emergency cardiac catheterization and stenting. Having severe pain in his lower extremities, most probably related to his back pain. I evaluated CT angiogram which showed total occlusion of his SFA bilaterally, he was admitted for peripheral angiogram. This morning still having pain in his leg, diminished pulse. No chest pain. PMH-Cardiology Other PMHx Multiple back surgeries last surgery was over 20 years ago Social History Patient Social History Marrital Status: Employed/Student: employed Smoking: Current every day smoker Family Hx Other Discussed below ROS-Cardiology Review of Systems General: No Chills, No Night Sweats, No Fatigue, No Malaise, No Appetite HEENT: No Head Aches, No Visual Changes, No Eye Pain, No Ear Pain, No Dysphasia, No Sinus Congestion, No Post Nasal Drip, No Sore Throat Pulmonary: No Dyspnea, No Cough, No Pleuritic Chest Pain Cardiovascular: No: Chest Pain, Palpitations, Orthopnea, Paroxysmal Noc. Dyspnea, Edema, Lt Headedness Gastrointestinal: No: Nausea, Vomiting, Abdominal Pain, Diarrhea, Constipation, Melena, Hematochezia Genitourinary: No Dysuria, No Frequency, No Incontinence, No Hematuria, No Retention Musculoskeletal: back pain, leg pain; No: neck pain, shoulder pain, arm pain, hand pain, foot pain Neurological: No: Weakness, Numbness, Incoordination, Change in speech, Confusion, Seizures Home Medications & Allergies Allergies: Coded Allergies: No Known Drug Allergies (Unverified , 09/06/13) Home Medication List Reviewed: Yes Exam-Cardiology Vital Signs Vital Signs Date Time Temp Pulse Resp B/P (MAP) Pulse Ox O2 Delivery O2 Flow Rate FiO2 07/08/21 08:15 75 76/58 (64) 94 Room Air 07/08/21 04:00 37.0 07/08/21 00:00 19 Exam General Appearance: Alert, Oriented X3, Cooperative, No Acute Distress HEENT: Atraumatic, PERRLA Respiratory: Clear to Auscultation, Normal Air Movement Cardiovascular: Regular Rate, Normal S1, Normal S2, No Murmurs Abdominal: Normal Bowel Sounds, Soft, No Tenderness, No Hepatosplenomegaly, No Masses Extremities: No Clubbing, No Cyanosis, No Edema, Normal Pulses, No Tenderness/Swelling Skin: No Rashes, No Breakdown, No Significant Lesion Neuro: Normal Gait, Normal Speech, Strength at 5/5 X4 Ext, Normal Tone, Sensation Intact Psych/Mental Status: Mental Status NL, Mood NL Results Labs Labs Laboratory Tests 07/08/21 06:05: White Blood Count 10.8, Red Blood Count 4.62, Hemoglobin 14.1, Hematocrit 41, Mean Corpuscular Volume 89, Mean Corpuscular Hemoglobin 31, Mean Corpuscular Hemoglobin Concent 34, Red Cell Distribution Width 12.6, Platelet Count 216, Mean Platelet Volume 11.0, Sodium Level 135, Potassium Level 4.4, Chloride Level 104, Carbon Dioxide Level 19L, Anion Gap 12, Blood Urea Nitrogen 19H, Creatinine 1.32H, Estimat Glomerular Filtration Rate 59, BUN/Creatinine Ratio 14, Glucose Level 86, Calcium Level 8.7 A/P-Cardiology Admission Diagnosis Critical limb ischemia Peripheral arterial disease Coronary artery disease Hypertension Admission Status: Inpatient Order (span 2 midnights) Reason for Inpatient Admission: PAD Assessment/Plan Severe leg pain, mainly in his thigh. CTA was abnormal. Peripheral angiogram was done showing total occlusion of the SFA bilaterally Complex intervention of the left lower extremity with deployment of 4 stents in the left SFA with excellent results. Due to his renal insufficiency I am continuing with IV fluid and planning to proceed with angiogram on the right leg tomorrow. Coronary artery disease, Emergency cardiac catheterization was carried out on June 25, 2021 after having an acute myocardial infarction successful emergency stenting of the ostium of the LAD using argenis point stent 3 x 18 expanded to 3.1 with severe stenosis in the mid right coronary artery is large dominant artery with deployment of argenis point stent 3.5 x 15 mm expanded to 3.6 mmHg. Patient has 70% stenosis in the mid circumflex artery involving the ostium of the obtuse marginal branch which will be staged for intervention at a later point, ejection fraction 50%. Coronary angiogram was not performed during this visit due to his renal insufficiency. Will require intervention at a later point 2D echo done on June 26, 2021 showing normal LV size with EF 55 to 60%, PA pressure was not evaluated Hypotension, unable to tolerate beta-blockers or NAZ inhibitor and/or ARB as an outpatient. Hyperlipidemia, lipid profile was done on June 26, 2021 showing total cho lesterol 118, LDL 154, HDL 31, triglyceride 83. Patient is having severe neck pain since started on Lipitor 80 mg daily, it coul d be a reaction to Lipitor, I instructed him to stop it and monitor Tobaccoism, educated on smoking cessation Strong family history of heart disease History of multiple back surgeries last surgery was done in 1999 LEILA CR MD Jul 08, 2021 09:54
[2021-07-08 16:00] VITALS: BP 98/77
[2021-07-08 20:00] VITALS: BP 108/77
[2021-07-09] VITALS (19 sets, daily range): BP systolic 92–141; BP diastolic 65–108
[2021-07-09] MEDS: NS IV 1000 ML 1,000 ML IV SCH ×3 (00:39→18:45)
[2021-07-09] MEDS: PANTOPRAZOLE 40 MG (PROTONIX) TAB PO SCH (06:16)
[2021-07-09] MEDS: CLOPIDOGREL 75 MG (PLAVIX) TABLET PO SCH (08:35)
[2021-07-09] MEDS: ASPIRIN E.C. 81 MG (ECOTRIN) TAB PO SCH (08:35)
[2021-07-09] MEDS ORDERED: LIDOCAINE 1% INJ 20 ML VIAL ONE (11:40)
[2021-07-09] MEDS ORDERED: HEParin (CATH LAB) 2,000 ML IV ONE (11:40)
[2021-07-09] MEDS ORDERED: NS IV 1000 ML 0 ML ONE (11:40)
--- NOTE | 2021-07-09 14:11 | Conscious Sedation/ASA ---
Conscious Sedation Pre-Proced Time 14:10 ASA Score 3 For ASA 3 and 4: Consider anesthesia and medical clearance. Also, for patients with a history of failed moderate sedation consider anesthesia. Airway Lungs Heart ASA score ASA 1: a normal healthy patient ASA 2: a patient with a mild systemic disease (mid diabetes, controlled hypertension, obesity x ASA 3: a patient with a severe systemic disease that limits activity (angina, COPD, prior Myocardial infarction) ASA 4: a patient with an incapacitating disease that is a constant threat to life (CHF, renal failure) ASA 5: a moribund patient not expected to survive 24 hrs. (ruptured aneurysm) ASA 6: a declared brain- patient whose organs are being harvested. For emergent operations, add the letter E after the classification Mallampati Classification Grade 3 Sedation Plan Analgesia, Amnesia, Plan communicated to team members, Discussed options with patient/fam, Discussed risks with patient/fam The patient is an appropriate candidate to undergo the planned procedure, sedation, and anesthesia. The patient immediately re-assessed prior to indication. LEILA CR MD Jul 09, 2021 14:11
[2021-07-09] MEDS ORDERED: MIDAZOLAM 5 MG/5 ML (VERSED) VIAL ONE (14:12)
[2021-07-09] MEDS ORDERED: fentaNYL INJ 100 MCG/2 ML AMP ONE (14:12)
[2021-07-09] MEDS ORDERED: HEParin 1000 UNIT/ML (10ML VIAL) FOR BOLUS ONE (14:48)
--- NOTE | 2021-07-09 16:13 | Peripheral Report ---
Peripheral Report Physician (s)/[employer] Developer (s) Physician LEILA CR MD Pre-Procedure Diagnosis Pre-Procedure Diagnosis: Peripheral arterial disease, claudication Post-Procedure Note Procedure Start Date: Jul 09, 2021 Name of Procedure: Right lower extremity runoff Third order Stenting of the right SFA Findings/Procedure Note PROCEDURE NOTE: 66-year-old gentleman with severe peripheral arterial disease underwent intervention on the left lower extremity on July 15, 2021 scheduled for staged intervention on the right lower extremity. After explaining the procedure to the patient, all pros and cons were explained, all questions were answered. The patient signed the consent and then he was placed on the cardiac catheterization laboratory. The patient was placed on the cardiac catheterization laboratory. Groin was prepped SL fashion local anesthesia was used. Sheath placed in the left femoral artery, I did angiogram evaluate the sheath physician. Then using a rim catheter crossed over and exchanged the catheter using 6 Frisian long sheath. I had difficulty crossing the total occlusion of the ostium of the right SFA I was able to advance command 14 wire over a mini 18 down to the mid SFA then I remove the command 14 and used command [address] and I was able to advance it to the popliteal artery. I advanced the mini catheter to the popliteal artery and retrieved a wire then did injection through the mini catheter establish that the catheter is in the true lumen with good flow beyond the popliteal artery. I placed the command 18 wire again and then proceeded with balloon angioplasty started by 4x200 [place] then I used [place] 6 x 200 with multiple inflation. Then proceeded with deployment of 3 overlapping stents Supera 6 x 80 followed by 6 x 150 followed by 6 x 150, post intervention angiogram showed excellent result Perclose was deployed. FINDINGS: Right lower extremity: Total occlusion of the right SFA reconstructed at the popliteal level, complex intervention with multiple balloon then deployment of 3 overlapping Supera stents 6 x 80 followed by 6 x 150 followed by 6 x 150, postdilatation with 6 balloon with excellent results. Left lower extremity: Good flow, good position of the sheath. I did not run the leg beyond the bifurcation CONCLUSIONS: 1. Complex intervention for chronic total occlusion of the right SFA with reestablishing flow and deployment of 3 overlapping Supera stents extending from the right common femoral artery to the right popliteal artery with excellent results. 2. Good flow below the trifurcation DISCUSSION AND RECOMMENDATIONS: Continue to maximize medical therapy Anesthesia Type: Conscious Sedation Estimated blood loss (mL): 30 ml Contrast Amount: 40 ml Total Radiation Dose: 364 mGy Post-Procedure Diagnosis Post-operative diagnosis: Claudication Peripheral arterial disease Hypertension Hyperlipidemia LEILA CR MD Jul 09, 2021 16:13
--- NOTE | 2021-07-09 16:14 | Cardiology Progress Note ---
Subjective Date Seen by Provider: Jul 09, 2021 Time Seen by Provider: 16:13 Subjective/Events-last exam Patient was seen at bedside, doing well, had complex intervention on the right leg today. Recovering well Review of Systems General: No Chills, No Night Sweats, No Fatigue, No Malaise, No Appetite, No Other HEENT: No Head Aches, No Visual Changes, No Eye Pain, No Ear Pain, No Dysphasia, No Sinus Congestion, No Post Nasal Drip, No Sore Throat, No Other Pulmonary: No Dyspnea, No Cough, No Pleuritic Chest Pain, No Other Cardiovascular: No: Chest Pain, Palpitations, Orthopnea, Paroxysmal Noc. Dyspnea, Edema, Lt Headedness, Other Objective-Cardiology Exam Last Set of Vital Signs Vital Signs 07/09/21 13:06 Temp 36.7 Pulse 59 Resp 16 B/P (MAP) 97/79 (85) Pulse Ox 99 O2 Delivery Room Air I&O Intake and Output 07/09/21 00:00 Intake Total 1275 ml Output Total 950 ml Balance 325 ml Intake Oral 1275 ml Output Urine Total 950 ml # Voids 3 General: Alert, Oriented X3, Cooperative, No Acute Distress HEENT: Atraumatic, PERRLA Lungs: Clear to Auscultation, Normal Air Movement Heart: Regular Rate, Normal S1, Normal S2, No Murmurs Abdomen: Normal Bowel Sounds, Soft, No Tenderness, No Hepatosplenomegaly, No Masses Extremities: No Clubbing, No Cyanosis, No Edema, Normal Pulses, No Tenderness/Swelling Skin: No Rashes, No Breakdown, No Significant Lesion Neuro: Normal Gait, Normal Speech, Strength at 5/5 X4 Ext, Normal Tone, Sensation Intact Psych/Mental Status: Mental Status NL, Mood NL A/P-Cardiology Admission Diagnosis Critical limb ischemia Peripheral arterial disease Coronary artery disease Hypertension Assessment/Plan Severe leg pain, mainly in his thigh. CTA was abnormal. Peripheral angiogram was done showing total occlusion of the SFA bilaterally Complex intervention of the left lower extremity with deployment of 4 stents in the left SFA with excellent results. On July 09, 2021 patient underwent complex intervention on the right lower extremity with treatment of a chronic total occlusion of the right SFA with deployment of 3 overlapping Supera stent extending from the common femoral artery to the popliteal artery using 6 x 80, followed by 6 x 150 followed by 6 x 150 Supera with excellent results Coronary artery disease, Emergency cardiac catheterization was carried out on June 25, 2021 after having an acute myocardial infarction successful emergency stenting of the ostium of the LAD using argenis point stent 3 x 18 expanded to 3.1 with severe stenosis in the mid right coronary artery is large dominant artery with deployment of skypoint stent 3.5 x 15 mm expanded to 3.6 mmHg. Patient has 70% stenosis in the mid circumflex artery involving the ostium of the obtuse marginal branch which will be staged for intervention at a later point, ejection fraction 50%. Coronary angiogram was not performed during this visit due to his renal insu fficiency. Will require intervention at a later point 2D echo done on June 26, 2021 showing normal LV size with EF 55 to 60%, PA pressure was not evaluated Hypotension, unable to tolerate beta-blockers or NAZ inhibitor and/or ARB as an outpatient. Hyperlipidemia, lipid profile was done on June 26, 2021 showing total cholesterol 118, LDL 154, HDL 31, triglyceride 83. Patient is having severe neck pain since started on Lipitor 80 mg daily, it could be a reaction to Lipitor, I instructed him to stop it and monitor Tobaccoism, educated on smoking cessation Strong family history of heart disease History of multiple back surgeries last surgery was done in 1999 LEILA CR MD Jul 09, 2021 16:14
[2021-07-09] MEDS ORDERED: ATOR20TA49 PO (16:15)
[2021-07-09] MEDS ORDERED: PATIENT MAY USE OWN MEDS, ALL PO SCH (16:15)
--- NOTE | 2021-07-09 16:16 | Discharge Inst-Post CATH ---
Discharge Inst-CATH/EP Problems Reviewed?: Yes Post Cardiac Cath/EP D/C Inst Follow Up/Plan Appointment with Dr. Snow's office in 2 weeks <b>CARDIAC CATH/EP PROCEDURE DISCHARGE INSTRUCTIONS</b> ACTIVITY * Go Home directly and rest. * Limit activity of the leg (or wrist if it was used) for 7 days including aerobics, swimming, jogging, bicycling, etc. * Restrict stair-climbing for 7 days if possible, if not, climb up with your non-cath leg, then bring together on the same step. * Avoid lifting, pushing, pulling or excessive movement of the affected extremity for 7 days. * Customary sexual activity may be resumed after 2 days-use caution not to use a position that strains or causes pain to the affected extremity. * No driving for 24 hours. * NO SMOKING. * Avoid straining for bowel movements for 7 days. * Gentle walking on level ground is allowed. * Returning to work will depend on the type of procedure and the results. Your doctor will discuss this with you. CALL YOUR DOCTOR FOR ANY OF THE FOLLOWING: *If bleeding from the puncture site occurs- Apply gentle pressure to site with clean cloth and call your doctor or EMS. * If a knot or lump forms under the skin, increases in size, or causes pain. * If bruising appears to be worsening or moving further down your leg instead of disappearing. * Temperature above 101 F. CARE OF YOUR GROIN INCISION; * Bruising or purple discoloration of the skin near the puncture site is common. * You may shower only, no bathtub bathing for 5 days. Be careful to avoid slipping as your leg may feel stiff. * If a closure device was used on your femoral artery, please see the attached guide regarding care of the device and your leg. * Leave dressing on FOR 24 hours. CARE OF YOUR WRIST INCISION; * Bruising or purple discoloration of the skin near the puncture site is common. * You may shower. * DO NOT submerge wrist. * Leave dressing on FOR 24 hours. LEILA SNOW MD Jul 09, 2021 16:16
[2021-07-10] MEDS: NS IV 1000 ML 1,000 ML IV SCH ×2 (01:50→01:59)
[2021-07-10 04:30] VITALS: BP 114/72
[2021-07-10 05:38] LABS: HEMATOCRIT 38 % (40-54); HEMOGLOBIN 12.9 g/dL (13.3-17.7); MEAN CORPUSCULAR HEMOGLOBIN 31 pg (25-34); MEAN CORPUSCULAR HGB CONC 34 g/dL (32-36); MEAN CORPUSCULAR VOLUME 89 fL (80-99); MEAN PLATELET VOLUME 11.2 fL (9.0-12.2); PLATELET COUNT 194 10^3/uL (130-400); WHITE BLOOD COUNT 11.2 10^3/uL (4.3-11.0)
[2021-07-10 05:45] LABS: POTASSIUM 4.2 MMOL/L (3.6-5.0)
[2021-07-10 05:47] LABS: CALCIUM 8.5 MG/DL (8.5-10.1)
[2021-07-10 05:51] LABS: CREATININE SERUM 1.18 MG/DL (0.60-1.30)
[2021-07-10] MEDS: PANTOPRAZOLE 40 MG (PROTONIX) TAB PO SCH (08:45)
[2021-07-10] MEDS: ASPIRIN E.C. 81 MG (ECOTRIN) TAB PO SCH (08:45)
[2021-07-10] MEDS: CLOPIDOGREL 75 MG (PLAVIX) TABLET PO SCH (08:46)
--- NOTE | 2021-07-10 09:44 | Progress Note - Cardiology ---
Cardiology SOAP Progress Note Subjective: No cp or palp or syncope No shortness of breath at rest No leg or groin discomfort Wishes to go home Objective: I&O/Vital Signs 07/09/21 07/09/21 07/10/21 07/10/21 22:00 23:00 01:00 03:52 Temp 37.1 36.8 36.4 Pulse 82 76 80 Resp 12 12 B/P (MAP) 97/74 (82) 93/65 (74) Pulse Ox 96 96 O2 Delivery Room Air Room Air 07/10/21 07/10/21 07/10/21 04:30 07:00 08:51 Pulse 74 67 Resp 14 B/P (MAP) 114/72 (86) Pulse Ox 96 98 O2 Delivery Room Air Room Air 07/10/21 00:00 Intake Total 740 ml Output Total 600 ml Balance 140 ml Weight (Pounds): 153 Weight (Calculated Kilograms): 69.079972 Bruising: mild bruising Constitutional: AAO x 3, well-developed, well-nourished Respiratory: No accessory muscle use; other (fair air entry, prolonged exp phase) Cardiovascular: regular rate-rhythm, S1 and S2, systolic murmur (soft ALL at card base) Gastrointestional: No tender; soft; No guarding, No rebound; audible bowel sounds Extremities: No clubbing, No cyanosis, No significant edema Neurologic/Psychiatric: oriented x 3, other (moves all limbs equally) Skin: No rash, No ulcerations Results/Procedures: Labs Laboratory Tests 07/10/21 05:11: White Blood Count 11.2H, Red Blood Count 4.23L, Hemoglobin 12.9L, Hematocrit 38L , Mean Corpuscular Volume 89, Mean Corpuscular Hemoglobin 31, Mean Corpuscular Hemoglobin Concent 34, Red Cell Distribution Width 12.4, Platelet Count 194, Mean Platelet Volume 11.2, Sodium Level 136, Potassium Level 4.2, Chloride Level 105, Carbon Dioxide Level 19L, Anion Gap 12, Blood Urea Nitrogen 14, Creatinine 1.18, Estimat Glomerular Filtration Rate 68, BUN/Creatinine Ratio 12, Glucose Level 95, Calcium Level 8.5 Microbiology 07/07/21 MRSA Screen - Final, Complete MRSA not isolated A/P: Assessment: PAD - 07/07/21: successful intervention the L SFA, 4 stents - 07/09/21: successful intervention to R SFA, 3 overlapping Supera stent extending from the common femoral artery to the popliteal artery using 6 x 80, followed by 6 x 150 followed by 6 x 150 Supera Coronary artery disease, - Card cath 06/25/21: successful emergency stenting of the ostium of the LAD using argenis point stent 3 x 18 expanded to 3.1; evere stenosis in the mid right coronary artery is large dominant artery with deployment of skypoint stent 3.5 x 15 mm expanded to 3.6 mmHg. Patient has 70% stenosis in the mid circumflex artery involving the ostium of the obtuse marginal branch which will be staged for intervention at a later point, ejection fraction 50%. - 2D echo 06/26/21: normal LV size with EF 55 to 60%, PA pressure was not evaluate d H/o hypotension - unable to tolerate beta-blockers or NAZ inhibitor and/or ARB as an outpatient. Hyperlipidemia - lipid profile was done on June 26, 2021 showing total cholesterol 118, LDL 154, HDL 31, triglyceride 83. - intolerant to Lipitor Tobaccoism - educated on smoking cessation Strong family history of heart disease History of multiple back surgeries last surgery was done in 1999 Plan: * I interviewed and examined him. I reviewed his procedures and explained the findings and the interventions undertaken * I advised compliance with meds * I advised him to continue to refrain from tobacco use * Outpt cardiac f/u advisOSCAR Borrego MD FACP [facility] Jul 10, 2021 09:44
== END 2021-07-10 10:45 | disposition home or self-care (01) | DRG 254 ==
LOC: CATH 07:50 → CSD 12:55 → CATH 07-08 12:57 → CSD 07-08 12:57
PROVIDERS: ADMIT Internal Medicine Cardiovascular Disease; ATTEND Internal Medicine Cardiovascular Disease
PROC: 047L34Z Dilation of Left Femoral Artery with Drug-eluting Intraluminal Device, Percutaneous Approach (ICD-10-PCS; principal; 2021-07-07)
PROC: 047K34Z Dilation of Right Femoral Artery with Drug-eluting Intraluminal Device, Percutaneous Approach (ICD-10-PCS; 2021-07-09)
DX: I73.9 Peripheral vascular disease, unspecified (principal); I25.10 Atherosclerotic heart disease of native coronary artery without angina pectoris; I10 Essential (primary) hypertension; I95.9 Hypotension, unspecified; E78.5 Hyperlipidemia, unspecified; F17.210 Nicotine dependence, cigarettes, uncomplicated; Z82.49 Family history of ischemic heart disease and other diseases of the circulatory system
CPT/HCPCS: 36415; 37226; 71045; 75716; 80048; 80053; 80061; 81000; 85027; 85347; 85610; 85730; 87081; 93005

== ENCOUNTER 2021-07-13 08:53 | Emergency (ER) | payer MEDICARE ==
[~2021-07-13] VITALS: Ht 182 cm; Wt 72.0 kg
[~2021-07-13 08:53] MED LIST changes: +ATOR20TA49 PO; +CLOP75TA28 PO
[2021-07-13] MEDS ORDERED: HYDROcodone/APAP 5 MG/325 MG (LORTAB) TAB PO ONE (10:15)
--- NOTE | 2021-07-13 11:13 | Diagnostic Imaging Report ---
INDICATION: Right leg pain. Right leg venous Doppler study was performed in the routine fashion with color flow Doppler and waveform analysis. FINDINGS: The right common femoral vein, superficial femoral vein, popliteal vein and visualized portion of the tibial veins show normal compressibility and venous flow patterns. There is normal augmentation. IMPRESSION: No evidence of deep vein thrombosis of the major veins of the right leg. Dictated by: Dictated on workstation # [id number]
--- NOTE | 2021-07-13 11:18 | Diagnostic Imaging Report ---
INDICATION: Right groin pain post catheterization. TECHNIQUE: The right groin arterial Doppler study was performed in the routine fashion with color flow Doppler and waveform analysis. FINDINGS: There is no evidence of right groin pseudoaneurysm or AV fistula. There is flow in the right common femoral artery with a monophasic waveform. There is also flow in the profunda and SFA. The popliteal artery is patent. There is flow in the tibial vessels. IMPRESSION: Patent arterial structures with no evidence of pseudoaneurysm or AV fistula. Stented portion of the SFA appears patent. Dictated by: Dictated on workstation # [id number]
[2021-07-13] MEDS ORDERED: fentaNYL INJ 100 MCG/2 ML AMP IVP ONE (12:15)
[2021-07-13] MEDS ORDERED: OXYC-199 PO (12:59)
--- NOTE | 2021-07-13 13:00 | ED Lower Extremity ---
General Chief Complaint: Lower Extremity Stated Complaint: S/P R LEG STENT PAIN/SWOLLEN Nursing Triage Note: ARRIVED VIA WC TO ROOM 08 WITH COMPLAINTS OF RIGHT LEG PAIN AND EDEMA IN HIS FOOT. STATES HE HAD A HEART CATH DONE WITH DR SNOW ON MONDAY. Source: patient Exam Limitations: no limitations History of Present Illness Date Seen by Provider: Jul 13, 2021 Time Seen by Provider: 10:00 Initial Comments This 66-year-old gentleman presents to the emergency room with primary complaint of pain and swelling in the lower half of the right lower extremity. He had b ilateral peripheral artery stenting performed in the lower extremities by Dr. Snow last week. 2 weeks ago he had cardiac stenting performed. He has extensive coronary artery and peripheral vascular disease. Since the procedure he has had migratory pain of the lower extremities, right greater than left. Today the pain seems to be most concentrated around the posterior ankle and Achilles region. He has pain with weightbearing and moving. He is sometimes rather sensitive to the touch. Previously pain seemed to be more in the bilateral thighs. Perfusion seems to be intact with palpable dorsal pedal pulse and reasonable capillary refill in the toes and foot. Patient reports compliance with aspirin and Plavix. Allergies and Home Medications Allergies Coded Allergies: No Known Drug Allergies (Unverified , 09/06/13) Patient Home Medication List Home Medication List Reviewed: Yes Aspirin (Aspirin EC) 81 Mg Tablet., 81 MG PO DAILY Prescribed by: LEILA SNOW on 06/26/21 0904 Atorvastatin Calcium (Lipitor) 20 Mg Tablet, 20 MG PO DAILY Prescribed by: LEILA SNOW on 07/09/21 1615 Clopidogrel Bisulfate (Clopidogrel) 75 Mg Tablet, 75 MG PO DAILY, (Reported) Entered as Reported by: GEE HAYDEN on 07/07/21 0858 Oxycodone HCl/Acetaminophen (Percocet 5-325 mg Tablet) 5 Mg-325 Mg Tablet, 1 TAB PO Q6H PRN for PAIN-MODERATE (5-7) Prescribed by: RENETTA ABREU on 07/13/21 1300 Pantoprazole Sodium (Pantoprazole Sodium) 40 Mg Tablet.dr 40 MG PO DAILY@0700 Prescribed by: LEILA SNOW on 06/26/21 0904 Discontinued Medications Atorvastatin Calcium (Atorvastatin Calcium) 80 Mg Tablet, 80 MG PO HS Discontinued Reason: No Longer Taking Prescribed by: LEILA SNOW on 06/26/21 0904 Docusate Sodium (Colace) 100 Mg Capsule, 1 CAP PO BID Discontinued Reason: No Longer Taking Prescribed by: JAY SCHULZ on 09/12/13 0956 Ticagrelor (Brilinta) 90 Mg Tablet, 90 MG PO BID Discontinued Reason: No Longer Taking Prescribed by: LEILA SNOW on 06/26/21 0904 Review of Systems Constitutional: no symptoms reported EENTM: no symptoms reported Respiratory: no symptoms reported Cardiovascular: see HPI Gastrointestinal: no symptoms reported Genitourinary: no symptoms reported Musculoskeletal: see HPI Skin: no symptoms reported Psychiatric/Neurological: No Symptoms Reported Past [id number]-[id number]-[id number] Hx Patient Social History Tobacco Use?: Yes Tobacco type used: Cigarettes Smoking Status: Current Everyday Smoker Substance use?: No Alcohol Use?: No Immunizations Up To Date First/Initial COVID19 Vaccinat: Mar 2020 Second COVID19 Vaccination Luis: Apr 2020 COVID19 Vaccine [employer] 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 Past Medical History Surgeries: Yes Coronary Stent, Orthopedic (Back surgeries), Vascular Surgery (Lower extremity peripheral vascular stenting) Respiratory: No Cardiac: Yes Coronary Artery Disease, Hypertension Neurological: No Genitourinary: No Gastrointestinal: Yes Gastroesophageal Reflux Musculoskeletal: No Endocrine: No HEENT: No Cancer: No Psychosocial: No Physical Exam Vital Signs Vital Signs - First Documented 07/13/21 08:55 Temp 36.3 Pulse 63 Resp 16 B/P (MAP) 139/86 (103) Pulse Ox 100 O2 Delivery Room Air Capillary Refill : Less Than 3 Seconds Height, Weight, BMI Height: 6'0.00" Weight: 153lbs. oz. 69.828602zt; 21.00 BMI Method: General Appearance: WD/WN, mild distress HEENT: normal ENT inspection Neck: normal inspection Cardiovascular: regular rate, rhythm, no murmur Respiratory: lungs clear, normal breath sounds, no respiratory distress Legs: bilateral leg other (Mild bilateral lower extremity edema edema, right greater than left. Some reticular discoloration in splotches on the bilateral legs, especially the thighs. Tenderness most prominent in the right posterior ankle and Achilles region with no obvious evidence of injury. No pain with range of motion of the ankle. Strong dorsal pedal pulse. Capillary refill brisk to 6 seconds throughout the foot and toes) Knees: right knee non-tender, right knee normal inspection, right knee normal range of motion Ankles: right ankle other (See above) Feet: right foot other (See above) Neurologic/Tendon: normal sensation, normal motor functions Neurologic/Psychiatric: no motor/sensory deficits, alert, oriented x 3 Skin: warm/dry, other (See above) Progress/Results/Core Measures Results/Orders My Orders Orders - RENETTA VENTURA MD Right Low Ext [id number] (07/13/21 10:06) Us Venous Lower Ext Rt (07/13/21 10:06) Hydrocodone/Apap 5/325 Tablet (Lortab 5 (07/13/21 10:15) Ed Iv/Invasive Line Start (07/13/21 12:12) Fentanyl Inj (Sublimaze Injection) (07/13/21 12:15) Medications Given in ED Current Medications Medications Dose Ordered Sig/Jeniffer Route Start Time Stop Time Status Last Admin Dose Admin Acetaminophen/ Hydrocodone Bitart 1 ea ONCE ONCE PO 07/13/21 10:15 07/13/21 10:16 DC 07/13/21 10:14 1 EA Vital Signs/I&O 07/13/21 07/13/21 08:55 13:05 Temp 36.3 36.3 Pulse 63 71 Resp 16 16 B/P (MAP) 139/86 (103) 121/104 Pulse Ox 100 98 O2 Delivery Room Air Room Air Blood Pressure Mean: 103 Progress Progress Note : Progress Note Arterial and venous ultrasound studies were performed on the right lower extremity. No significant pathology was noted on these studies. Patient was treated with hydrocodone. Case was discussed with Dr. Snow who presented to the ER to evaluate the patient. He recommended further evaluation with labs and fentanyl for treatment of the pain. Patient did not want to spend any more time in the ER and elected to leave without further work-up. It is possible the patient is experiencing reperfusion discomfort. Patient was advised of the risks of leaving before obtaining labs, but he preferred to take a conservative observational approach and follow-up on an outpatient basis. Diagnostic Imaging Diagonstic Imaging: Ultrasound Plain Films/CT/US/NM/MRI: leg Comments NAME: LINOGLORY Campbell [facility] REC#: [id number] PT STATUS: REG ER : 1955 PHYSICIAN: RENETTA VENTURA MD ADMIT DATE: 07/13/21/ER Draft Date of Exam:07/13/21 US RIGHT LOW EXT [id number] INDICATION: Right groin pain post catheterization. TECHNIQUE: The right groin arterial Doppler study was performed in the routine fashion with color flow Doppler and waveform analysis. FINDINGS: There is no evidence of right groin pseudoaneurysm or AV fistula. There is flow in the right common femoral artery with a monophasic waveform. There is also flow in the profunda and SFA. The popliteal artery is patent. There is flow in the tibial vessels. IMPRESSION: Patent arterial structures with no evidence of pseudoaneurysm or AV fistula. Stented portion of the SFA appears patent. Dictated on workstation # [id number] Dict: 07/13/21 1112 Trans: 07/13/21 1118 [id number] Interpreted by: JOSE MARIA ASHTON MD NAME: GLORY HUYNH [facility] REC#: [id number] PT STATUS: REG ER : 1955 PHYSICIAN: RENETTA VENTURA MD ADMIT DATE: 07/13/21/ER Signed Date of Exam:07/13/21 US VENOUS LOWER EXT RT INDICATION: Right leg pain. Right leg venous Doppler study was performed in the routine fashion with color flow Doppler and waveform analysis. FINDINGS: The right common femoral vein, superficial femoral vein, popliteal vein and visualized portion of the tibial veins show normal compressibility and venous flow patterns. There is normal augmentation. IMPRESSION: No evidence of deep vein thrombosis of the major veins of the right leg. Dictated by: Dictated on workstation # [id number] Dict: 07/13/21 1111 Trans: 07/13/21 1112 [id number] Interpreted by: JOSE MARIA ASHTON MD Electronically signed by: JOSE MARIA ASHTON MD 07/13/21 111 Departure Impression Primary Impression: Right leg pain Additional Impression: Peripheral artery disease Disposition: 01 HOME, SELF-CARE Condition: Stable Departure-Patient Inst. Referrals: NO,LOCAL PHYSICIAN (PCP/Family) Primary Care Physician Patient Instructions: Peripheral Artery Disease and Claudication Add. Discharge Instructions: The exact cause of your leg pain is uncertain. Please follow-up with your primary care provider as soon as possible. If you have any worsening of symptoms, please return to the emergency room, especially if you develop progressive weakness in your legs, escalating pain, difficulty controlling bowels or bladder, or other significant changes. All discharge instructions reviewed with patient and/or family. Voiced understanding. Scripts Oxycodone HCl/Acetaminophen (Percocet 5-325 mg Tablet) 5 Mg-325 Mg Tablet 1 TAB PO Q6H PRN for PAIN-MODERATE (5-7) MDD 6, #8 TAB Prov: RENETTA VENTURA MD 07/13/21 Copy Copies To 1: LEILA SNOW MD, JOSHUA T MD Jul 13, 2021 13:00
[2021-07-13 13:05] VITALS: BP 121/104
== END 2021-07-13 13:02 | disposition home or self-care (01) ==
LOC: EDUNIT# 08:53 → ER 08:56
DX: M79.604 Pain in right leg (principal); I73.9 Peripheral vascular disease, unspecified; F17.210 Nicotine dependence, cigarettes, uncomplicated
CPT/HCPCS: 93926

== ENCOUNTER → 2021-10-18 | Outpatient (CLI) | payer MEDICARE ==
[~2021-10-18] MED LIST changes: +OXYC-199 PO
--- NOTE | 2021-10-18 13:44 | Diagnostic Imaging Report ---
PROCEDURE: MRI lumbar spine. TECHNIQUE: Multiplanar, multisequence MRI of the lumbar spine was performed without contrast. DATE: October 18, 2021. COMPARISON: CT chest, abdomen and pelvis December 30, 2011. INDICATION: 66-year-old male, low back pain. FINDINGS: There is a thoracolumbar levoscoliosis. There is no evidence of a diffuse marrow infiltrating or replacing process. There is no identified compression deformity, or other fracture, or focal concerning bone lesion. There is susceptibility artifact posteriorly to the right of midline at the level of L1-L2. The visualized cord and conus medullaris is unremarkable and terminates at the L1-L2 level. There is moderate disc height loss at T11-T12 and T12-L1. There is moderate disc height loss at L1-L2. There is moderate to severe disc height loss at L2-L3. There is partial ankylosis across the L2-L3 disc space. There is mild to moderate disc height loss at L4-L5. There is severe disc height loss at L5-S1. There are Modic endplate degenerative related changes of the thoracolumbar spine. There is a T2 hyperintense right renal lesion consistent with a benign cyst correlating with prior CT exam. T12-L1: There is mild diffuse disc bulge. There is no foraminal or spinal stenosis. L1-L2: There is diffuse disc bulge. There is moderate narrowing of the right lateral recess. The facet joints and ligamentum flavum are unremarkable. There is moderate right foraminal narrowing. There is no spinal canal stenosis. L2-L3: There is no disc bulge. There are bilateral laminectomy changes. There is no foraminal narrowing. There is no spinal canal stenosis. L3-L4: There is no disc bulge. There are [id number] bilateral facet degenerative changes. There are bilateral laminectomy changes. There is mild bilateral foraminal narrowing. There is no spinal canal stenosis. L4-L5: There is diffuse disc bulge. There are mild bilateral facet degenerative changes. There are bilateral laminectomy changes. There is severe narrowing of the left lateral recess and moderate to severe narrowing of the right lateral recess. There is moderate to severe bilateral foraminal narrowing. There is severe spinal stenosis. L5-S1: There is diffuse disc bulge. The facet joints and ligamentum flavum are unremarkable. There is moderate bilateral foraminal narrowing. There is no spinal canal stenosis. IMPRESSION: 1. Multilevel disc and facet degenerative changes of the lumbar spine as described level by level above. 2. Thoracolumbar levoscoliosis. 3. No identified compression deformity, fracture, or focal concerning bone lesion. 4. Prior laminectomy changes of L2, L3, and L4. Dictated by: Dictated on workstation # [id number]
== END ==
LOC: RAD 08:54
PROVIDERS: ATTEND Nurse Practitioner Family
DX: M47.816 Spondylosis without myelopathy or radiculopathy, lumbar region (principal); M51.26 Other intervertebral disc displacement, lumbar region; M51.27 Other intervertebral disc displacement, lumbosacral region; M48.061 Spinal stenosis, lumbar region without neurogenic claudication; M48.07 Spinal stenosis, lumbosacral region; M41.85 Other forms of scoliosis, thoracolumbar region; Z98.890 Other specified postprocedural states
CPT/HCPCS: 72148

== ENCOUNTER → 2022-05-09 | Outpatient (CLI) | payer MEDICARE ==
[~2022-05-09] MED LIST changes: +CATHETER FLUSH 10 ML SYR IV PRN; +IOHEXOL 350 MG/ML 100 ML (OMNIPAQUE 350) VIAL IV ONE; +NS 100 ML (IVPB) BAG IV ONE
[2022-05-09 09:30] LABS: CREATININE SERUM 1.63 MG/DL (0.60-1.30)
--- NOTE | 2022-05-09 14:35 | Diagnostic Imaging Report ---
EXAMINATION: CT angiogram of the neck obtained. TECHNIQUE: Precontrast images were obtained of the neck. Multiple contiguous axial images were obtained through the chest, abdomen, and pelvis after administration of intravenous contrast. Auto Exposure Controls were utilized during the CT exam to meet ALARA standards for radiation dose reduction. Coronal MIP reconstructed. HISTORY: Reversal flow within the left vertebral artery. Atherosclerosis of the cervical arteries COMPARISON: None available. FINDINGS: Vascular: The aortic arch is normal in caliber. 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 The remainder of the great vessels are patent. Atherosclerosis within the right carotid bulb. No carotid stenosis per NASCET criteria. Patent right common, right internal, right external carotid artery. The left common carotid artery, internal carotid artery, and external carotid artery are patent. Atherosclerosis within the proximal cervical ICA without stenosis. The right vertebral artery is patent and normal in caliber. The left vertebral artery is patent with atherosclerosis at the origin resulting in 50% stenosis. There is enlargement of the right jugular vein. Nonvascular: The nasopharynx, oropharynx, and hypopharynx are patent and normal in caliber. The paranasal sinuses and mastoids are clear. Scattered subcentimeter lymph nodes within the neck. No pathologically enlarged or abnormally enhancing lymph nodes. The parotid and submandibular glands are normal. The thyroid gland is normal. Included views of the chest demonstrates severe paraseptal and centrilobular emphysema with bullous and emphysematous changes. The osseous structures demonstrate severe multilevel degenerative changes with severe spinal canal stenosis at C3-C4, C4-C5, C5-C6. 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 50% stenosis of the origin of the left vertebral artery. No significant carotid or right vertebral artery stenosis. Severe multilevel cervical spondylosis with severe spinal canal stenosis at C3-C4, C4-C5, C5-C6. Enlargement of the right jugular vein may be seen with heart failure. Severe emphysematous changes within the included lung apices. Dictated by: Dictated on workstation # [id number]
== END ==
LOC: RAD 08:53
PROVIDERS: ATTEND Internal Medicine Cardiovascular Disease
DX: I82.B12 Acute embolism and thrombosis of left subclavian vein (principal); M47.812 Spondylosis without myelopathy or radiculopathy, cervical region; M48.02 Spinal stenosis, cervical region; I87.8 Other specified disorders of veins; J43.9 Emphysema, unspecified; G45.8 Other transient cerebral ischemic attacks and related syndromes
CPT/HCPCS: 36415; 70498; 82565; 84520

== ENCOUNTER → 2022-11-15 | Outpatient (CLI) | payer MEDICARE ==
[~2022-11-15] MED LIST changes: -CATHETER FLUSH 10 ML SYR IV PRN; -IOHEXOL 350 MG/ML 100 ML (OMNIPAQUE 350) VIAL IV ONE; -NS 100 ML (IVPB) BAG IV ONE
--- NOTE | 2022-11-15 15:22 | Diagnostic Imaging Report ---
PROCEDURE: CT abdomen and pelvis without contrast. TECHNIQUE: Multiple contiguous axial images were obtained through the abdomen and pelvis without the use of intravenous contrast. Auto Exposure Controls were utilized during the CT exam to meet ALARA standards for radiation dose reduction. INDICATION: Left lower quadrant pain, history of hernia and repair one week ago. COMPARISON with CT angio aortoiliacs 06/28/2021. No acute abdominal wall defect. No residual or recurrent inguinal hernia. No rectus sheath collection. No intra or extraperitoneal hemorrhage. No ascites. There are nonobstructing left renal calculi and bilateral renal cortical cysts chronic. There are nonaneurysmal aortic atherosclerotic vascular calcifications. No pneumatosis. No free gas. No ileus or bowel obstruction. There is noninflamed diverticular disease of the sigmoid colon. There is degenerative bony disease. No acute osseous pathology. IMPRESSION: 1. Nonobstructing left renal calculus. 2. Noninflamed diverticulosis, nonaneurysmal atherosclerosis and benign chronic renal cysts. 3. No bowel, biliary or urinary tract obstruction, ascites, hemorrhage, inflammatory process or recurrent/residual hernia. Dictated by: Dictated on workstation # [id number]
== END ==
LOC: RAD 13:13
PROVIDERS: ATTEND Registered Nurse Critical Care Medicine
DX: Z00.01 Encounter for general adult medical examination with abnormal findings (principal); N20.0 Calculus of kidney; N28.1 Cyst of kidney, acquired; K57.90 Diverticulosis of intestine, part unspecified, without perforation or abscess without bleeding; I25.10 Atherosclerotic heart disease of native coronary artery without angina pectoris; R22.2 Localized swelling, mass and lump, trunk; F17.210 Nicotine dependence, cigarettes, uncomplicated; M79.671 Pain in right foot; M54.59 Other low back pain
CPT/HCPCS: 74176